=== PATIENT | female | born 1940 | race Caucasian/White ===

== ENCOUNTER 2017-06-26 10:51 | Inpatient (IN) | payer MEDICARE, MEDICAID ==
[2017-06-26] VITALS (16 sets, daily range): BP systolic 100–217; BP diastolic 39–122
[~2017-06-26] VITALS: Ht 165.1 cm; Wt 76.7 kg
--- NOTE | 2017-06-26 10:51 | NUR ---
CODE STROKE CALLED.
[2017-06-26] MEDS ORDERED: IV NS 0.9% 1,000 ML BAG IV ONE ×2 (11:00→12:00)
--- NOTE | 2017-06-26 11:00 | NUR ---
[id number] FROM HOME FOR AMS,FOUND PASSED OUT BY DAUGHTER IN THE HALLWAY. 2MG NARCAN GIVEN BY EMS W/O IMPROVEMENT. [id number]-1130PM LAST NIGHT BS-220. SEEN BY MD FOR EVAL. NOTED ALTERED, RESPONSIVE TO PAIN. NOTED WITH NASAL TRUMPET- PLACED ON NON-REBREATHER. IV ACCESS STARTED. SAFETY AND COMFORT MEASURES PROVIDED. WILL MONITOR.
[2017-06-26 11:03] LABS: BASOPHILS % (AUTO) 0.3 % (0.0-2.0); EOSINOPHILS % (AUTO) 0.1 % (0.0-6.0); HEMATOCRIT 37 % (33-45); HEMOGLOBIN 12.4 g/dL (11.5-14.8); LYMPHOCYTES # (AUTO) 1.2 /CMM (0.8-4.8); LYMPHOCYTES % (AUTO) 12.1 % (20.0-44.0); MEAN CORPUSCULAR HGB CONC 34 g/dl (31.0-36.0); MEAN CORPUSCULAR VOLUME 84 fL (82-100); MONOCYTES # (AUTO) 0.5 /CMM (0.1-1.30); MONOCYTES % (AUTO) 5.2 % (2.0-12.0); NEUTROPHILS # (AUTO) 8.5 /CMM (1.8-8.9); NEUTROPHILS % (AUTO) 82.3 % (43.0-81.0); PLATELET COUNT (AUTO) 280 /CMM (150-450); RED BLOOD CELL COUNT(AUTO) 4.36 MIL/uL (4.0-5.2); WHITE BLOOD COUNT (AUTO) 10.2 K/uL (4.3-11.0)
--- NOTE | 2017-06-26 11:05 | NUR ---
PT CAME BACK FROM CT.
[2017-06-26] MEDS ORDERED: IOHEXOL-350 100 ML VIAL IV ONE (11:07)
[2017-06-26] MEDS ORDERED: CT SWABBABLE VALVE TRANS SET 1 EA INFUS.SET MC ONE (11:08)
[2017-06-26] MEDS ORDERED: IV NS 0.9% 250 ML IV ONE (11:08)
[2017-06-26 11:09] LABS: CALCIUM, SERUM 9.1 mg/dL (8.5-10.1); CARBON DIOXIDE 25 mmol/L (21-32); CHLORIDE 99 mmol/L (98-107); GLUCOSE 215 mg/dL (74-106); POTASSIUM 3.9 mmol/L (3.5-5.1); SODIUM SERUM 136 mmol/L (136-145); UREA NITROGEN, BLOOD 15 mg/dL (7-18)
[2017-06-26 11:12] LABS: INR 0.94 (0.85-1.15)
[2017-06-26 11:17] LABS: CHOLESTEROL 147 mg/dL (<200); HDL CHOLESTEROL 60 mg/dL (40-60); LDL 69 mg/dL (0-99); TRIGLYCERIDES 108 mg/dL (30-150); TROPONIN I < 0.017 ng/mL (0.00-0.056)
[2017-06-26 11:25] LABS: ALANINE AMINOTRANSFERASE 20 U/L (12-78); ALBUMIN 4.2 g/dL (3.4-5.0); ALKALINE PHOSPHATASE 66 U/L (46-116); ASPARTATE AMINOTRANSFERASE 19 U/L (15-37); BILIRUBIN,DIRECT 0.1 mg/dL (0.0-0.2); BILIRUBIN,TOTAL 0.4 mg/dL (0.2-1.0); TOTAL PROTEIN, SERUM 7.8 g/dL (6.4-8.2)
[2017-06-26 12:23] LABS: APPEARANCE,URINE Clear (CLEAR); BILIRUBIN,URINE Negative (NEGATIVE); BLOOD, URINE Negative Ery/uL (NEGATIVE); COLOR,URINE Yellow (YELLOW); KETONES,URINE Negative (NEGATIVE); LEUKOCYTE ESTERASE ,URINE Negative (NEGATIVE); NITRITE, URINE Negative (NEGATIVE); PROTEIN,URINE Negative (NEGATIVE); UGLUCOSE 100 MG/DL mg/dL (NEGATIVE); UROBILINOGEN,URINE 0.2 EU/dL (0.2)
[2017-06-26 12:41] LABS: ABG BASE EXCESS -6.4 mmol/L; ABG OXYGEN SATURATION 97.3 % (92.0-98.5); ABG PCO2 48.6 mmHg (35.0-45.0); ABG PH 7.249 (7.350-7.450); ABG PO2 128.8 mmHg (75.0-100.0); AaDO2 129.5 mmHg; COHb 0.2 % (0.5-1.5); MetHb 0.2 % (0.0-1.5); O2Hb 96.9 % (94.0-97.0); SITE, ABG Left Radial; VENT MODE, BG SIMPLE MASK
[2017-06-26 12:49] LABS: CREATINE KINASE, TOTAL 117 U/L (26-192)
[2017-06-26 12:51] LABS: SALICYLATE 0.8 mg/dL (2.8-20.0)
[2017-06-26 12:51] LABS: ACETAMINOPHEN 3 ug/ml (10-30)
[2017-06-26] MEDS ORDERED: ONDANSETRON HCL/PF 4 MG/2 ML VIAL ONE (12:59)
[2017-06-26] MEDS ORDERED: VANCOMYCIN 1 GM in IV D5W 250 ML IV ONE (13:30)
[2017-06-26] MEDS ORDERED: ONDANSETRON HCL/PF - ER 4 MG/2 ML VIAL IV ONE (13:30)
[2017-06-26] MEDS ORDERED: hydrALAZINE HCL IV 20 MG VIAL IV PRN (13:30)
[2017-06-26] MEDS ORDERED: PIPERACILLIN /TAZOBACTAM 3.375 G in IV D5W 50 ML IV ONE (13:30)
--- NOTE | 2017-06-26 13:35 | NUR ---
ICU 264
--- NOTE | 2017-06-26 13:45 | NUR ---
SUCCESSFUL RSI DONE BY DR. BELLO. RTS RPESENT AT BS.
--- NOTE | 2017-06-26 13:54 | NUR ---
PT INTUBATED BY ER DR. BELLO. INTUBATED WITH A 7.5 ETT @23CM AT THE LIP. POSITIVE COLOR CHANGE ON CAP. BILAT. B/S AUSCULTATED BY ER . VENT SETTINGS PER DR. GONZALES REQUEST. VENT PLUGGED INTO RED OUTLET. INDUSTRIAL ORDER CLERK DONE. VENT ALARMS CHECKED AND AUDIBLE PER POLICY. AMBU BAG AT HOB. Addendum: 06/26/17 at 1402 by MIKAEL CRAIN RT Amended: Links added.
[2017-06-26] MEDS ORDERED: IV D5/0.45 NACL 1,000 ML IV ONE (14:00)
--- NOTE | 2017-06-26 14:01 | NUR ---
REPORT GIVEN TO JOSE LARSON FOR ICU 264.
[2017-06-26] MEDS ORDERED: ATEN50TA PO (14:11)
[2017-06-26] MEDS ORDERED: FEE PK DOSING 1 MIN EA MC ONE (14:11)
[2017-06-26] MEDS ORDERED: SOLI5TAB2 PO (14:11)
[2017-06-26] MEDS ORDERED: TRAZ-214 PO (14:11)
[2017-06-26] MEDS ORDERED: ESOM40CA PO (14:11)
[2017-06-26] MEDS ORDERED: ROSU20TA PO (14:11)
[2017-06-26] MEDS ORDERED: SERT25TA PO (14:11)
[2017-06-26] MEDS ORDERED: PROPOFOL 100 ML IV PRN (14:30)
--- NOTE | 2017-06-26 15:00 | NUR ---
RN INITIAL NOTES RECEIVED PT FROM ER INTUBATED, ETT IN PLACE. ON VENT. NO RESPIRATORY DISTRESS NOTED. NO SOB NOTED. PT SEDATED, ON DIPRIVAN AT 15MCG/KG/MIN STARTED IN ER. NGT IN PLACE, PLACEMENT VERIFIED. IV LINES IN PLACE. FLUSHED WITH NS. FC IN PLACE. NO HEMATURIA NOTED. BODY ASSESSMENT DONE. PIC TAKEN AND PLACED IN THE CHART. DR. LOZANO AWARE OF ADMISSION. AWAITING FOR ORDERS. WILL CLOSELY MONITOR.
[2017-06-26] MEDS ORDERED: ETOMIDATE 2 MG/ML VIAL IV ONE (15:16)
[2017-06-26] MEDS ORDERED: SUCCINYLCHOLINE CHLORIDE 20 MG/ML VIAL IV ONE (15:16)
[2017-06-26] MEDS ORDERED: DIATR MEGLU/DIATRIZOATE SODIUM 120 ML BOTTLE (GASTROGRAPHIN) ONE (15:26)
[2017-06-26 15:34] LABS: ABG BASE EXCESS -3.3 mmol/L; ABG OXYGEN SATURATION 99.2 % (92.0-98.5); ABG PCO2 44.5 mmHg (35.0-45.0); ABG PH 7.325 (7.350-7.450); ABG PO2 521.1 mmHg (75.0-100.0); AaDO2 147.4 mmHg; MetHb 0.6 % (0.0-1.5); O2Hb 98.6 % (94.0-97.0); SITE, ABG Left Radial; VT, ABG 450 mL
[2017-06-26] MEDS: ASPIRIN 300 MG/SUPP.RECT RC SCH (15:41)
[2017-06-26] MEDS: ENOXAPARIN SODIUM 40 MG/0.4 ML DISP.SYRIN SQ SCH (15:47)
[2017-06-26 16:47] LABS: BASOPHILS % (AUTO) 0.2 % (0.0-2.0); HEMATOCRIT 38 % (33-45); HEMOGLOBIN 12.8 g/dL (11.5-14.8); LYMPHOCYTES # (AUTO) 0.9 /CMM (0.8-4.8); LYMPHOCYTES % (AUTO) 7.1 % (20.0-44.0); MEAN CORPUSCULAR HGB CONC 33 g/dl (31.0-36.0); MEAN CORPUSCULAR VOLUME 86 fL (82-100); MONOCYTES # (AUTO) 0.6 /CMM (0.1-1.30); NEUTROPHILS # (AUTO) 10.7 /CMM (1.8-8.9); NEUTROPHILS % (AUTO) 87.7 % (43.0-81.0); PLATELET COUNT (AUTO) 257 /CMM (150-450); RDW COEFFICIENT OF VARIATION 12.4 (11.5-15.0); RED BLOOD CELL COUNT(AUTO) 4.48 MIL/uL (4.0-5.2); WHITE BLOOD COUNT (AUTO) 12.2 K/uL (4.3-11.0)
[2017-06-26 16:56] LABS: CALCIUM, SERUM 8.5 mg/dL (8.5-10.1); CARBON DIOXIDE 22 mmol/L (21-32); CHLORIDE 102 mmol/L (98-107); CREATININE 0.9 mg/dL (0.6-1.3); GLUCOSE 191 mg/dL (74-106); POTASSIUM 3.7 mmol/L (3.5-5.1); SODIUM SERUM 135 mmol/L (136-145); UREA NITROGEN, BLOOD 2 mg/dL (7-18)
[2017-06-26 17:09] LABS: ALANINE AMINOTRANSFERASE 21 U/L (12-78); ALBUMIN 3.8 g/dL (3.4-5.0); ALKALINE PHOSPHATASE 63 U/L (46-116); ASPARTATE AMINOTRANSFERASE 20 U/L (15-37); B-TYPE NATRIURETIC PEPTIDE 911 PG/ML (0-125); BILIRUBIN,TOTAL 0.6 mg/dL (0.2-1.0); TOTAL PROTEIN, SERUM 7.3 g/dL (6.4-8.2)
[2017-06-26 17:13] LABS: INR 0.99 (0.87-1.13)
[2017-06-26] MEDS ORDERED: BLOOD SUGAR DIAGNOSTIC 1 EACH STRIP IN SCH (17:30)
[2017-06-26] MEDS: BLOOD SUGAR DIAGNOSTIC 1 EACH STRIP IN SCH (18:02)
[2017-06-26 18:03] LABS: THYROID STIMULATING HORMONE 0.713 uIU/mL (0.358-3.74)
--- NOTE | 2017-06-26 18:07 | NUR ---
JEWISH HISTORY PROFESSOR NOTES NOTIFIED DR LOZANO REGARDING BS OF 157 , PER NEELECK COMMENT TO CALL MD IF BS MORE THAT 150MG/DL MD AWARE NO NEW ORDERS RECEIVED
[2017-06-26] MEDS: PROPOFOL 100 ML IV PRN ×2 (18:31→23:26)
--- NOTE | 2017-06-26 19:00 | NUR ---
RN CLOSING NOTES PT REMAINS INTUBATED, ON VENT. NO RESPIRATORY DISTRESS NOTED. NO SOB NOTED. NO SIGNS OF PAIN NOTED. PT SEDATED, ON DIPRIVAN. IV LINES IN PLACE. FC IN PLACE. PT KEPT CLEAN AND DRY. REPOSITIONED Q2. BLE ELEVATED. WILL ENDORSE FOR CONTINUITY OF CARE.
[2017-06-26] MEDS: PIPERACILLIN /TAZOBACTAM 3.375 G in IV D5W 50 ML IV SCH (19:37)
--- NOTE | 2017-06-26 20:00 | NUR ---
ORGANISATION AND METHODS ANALYST NOTE RECEIVED PT IN BED SEDETED ON DIPRIVAN AT 50 MCG/KG/MIN. ETT IN PLACE AT .08/22 ON VENT AC 16 TV 450 FIO2 50% PEEP 5. NO DISTRESS OR DISCOMFORT NOTED. NO S/S OF PAIN NOTED. LT NARE NG TUBE INTACT AND PATENT, PT IS NPO. IVF D5 12 NS INFUSING AT 75 ML/HR. NO S/S OF INFILTRATION NOTED. F/C INTACT AND PATENT DRAINING YELLOWISH COLOR URINE. REPOSITION HER FOR COMFORT AND SKIN MANAGEMENT. VSS. SIDE RAILS UP X 2 AND CALL LIGHT WITHIN REACH. CONTINUE TO MONITOR HER CLOSELY. FAMILY AT BED SIDE.
[2017-06-26] MEDS: ATORVASTATIN 40 MG TABLET PO SCH (21:29)
[2017-06-26] MEDS ORDERED: Medication Not On Formulary EA (Rosuvastatin Calcium (Crestor) 20 MG) PO SCH (22:00)
--- NOTE | 2017-06-26 23:30 | NUR ---
FREIGHT ROUTER NOTE ALLAN RAMÍREZ DNP INFORMED PT BECOME RESTLESS, ALLAN GAVE NEW ORDER, ORDER NOTED AND CARRIED OUT.
--- NOTE | 2017-06-26 23:50 | NUR ---
ANATOMICAL EMBALMER NOTE ATIVAN 1 MG IVP GIVEN FOR RESTLESSNESS. REPOSITION THE PT. CONTINUE TO MONITOR, DIPRIVAN AT 60 MCG/KG/MIN AT THIS TIME.
[2017-06-26] MEDS: LORAZEPAM INJ 2 MG/ML VIAL IV PRN (23:55)
[2017-06-27] VITALS (31 sets, daily range): BP systolic 88–167; BP diastolic 28–92
[2017-06-27] MEDS: BLOOD SUGAR DIAGNOSTIC 1 EACH STRIP IN SCH ×5 (00:15→23:12)
[2017-06-27] MEDS: PIPERACILLIN /TAZOBACTAM 3.375 G in IV D5W 50 ML IV SCH ×4 (01:24→20:22)
[2017-06-27] MEDS: PROPOFOL 100 ML IV PRN ×2 (02:48→06:05)
--- NOTE | 2017-06-27 05:11 | NUR ---
PT RECEIVED INTUBATED ON VENT. NO RESP DISTRESS. PT TOLERATING VENT SETTINGS. SX'D FOR MOD AMT OF THICK YELLOW SECRETIONS. VENT ALARMS SET AND AUDIBLE. AMBU BAG AT BEDSIDE. WILL CONTINUE TO MONITOR. Addendum: 06/27/17 at 0511 by DANNY WHITTINGTON RT Amended: Links added.
[2017-06-27 05:13] LABS: CALCIUM, SERUM 8.2 mg/dL (8.5-10.1); CARBON DIOXIDE 23 mmol/L (21-32); CHLORIDE 104 mmol/L (98-107); CREATININE 1.1 mg/dL (0.6-1.3); GLUCOSE 160 mg/dL (74-106); POTASSIUM 3.3 mmol/L (3.5-5.1); SODIUM SERUM 138 mmol/L (136-145); UREA NITROGEN, BLOOD 10 mg/dL (7-18)
--- NOTE | 2017-06-27 06:50 | NUR ---
ENGINEER THIRD ASSISTANT NOTE PT IN BED SEDATED. NO DISTRESS OR DISCOMFORT NOTED. NO S/S OF PAIN NOTED. TOLERATING VENT SETTINGS. KEPT HOB ELEVATED. REPOSITION HER Q2H, KEPT HER DRY AND CLEAN. F/C INTACT AND PATENT DRAINING YELLOWISH COLOR URINE. DIPRIVAN INFUSING AT 60 MCG/KG/MIN. SOFT WRIST RESTRAINTS ON BILATERAL WRIST. SIDE RAILS UP X 3 AND CALL LIGHT WITHIN REACH. WILL ENDORSE TO DAY SHIFT NURSE FOR CONTINUE TO CARE.
--- NOTE | 2017-06-27 07:10 | NUR ---
RN INITIAL NOTES RECEIVED PT INTUBATED, ON VENT. NO RESPIRATORY DISTRESS NOTED. NO SOB NOTED. NO SIGNS OF PAIN NOTED. HOB ELEVATED. NGT IN PLACE, CLAMPED. IV LINES IN PLACE. PT SEDATED. ON DIPRIVAN AT 60MCG/KG/MIN. WILL TITRATE ACCORDINGLY. FC IN PLACE. NO HEMATURIA NOTED. BLE ELEVATED. WILL CONTINUE TO MONITOR.
[2017-06-27] MEDS: ATENOLOL 50 MG TABLET PO SCH (08:23)
[2017-06-27] MEDS: ENOXAPARIN SODIUM 40 MG/0.4 ML DISP.SYRIN SQ SCH (08:30)
[2017-06-27] MEDS ORDERED: ASPIRIN 300 MG/SUPP.RECT RC SCH (09:00)
[2017-06-27] MEDS ORDERED: ASPIRIN EC 325 MG TABLET.DR PO SCH (09:00)
--- NOTE | 2017-06-27 09:00 | NUR ---
RN NOTES PT'S DIPRIVAN OFF FOR SEDATION VACATION. PT OPEN EYES, PT CONFUSED. UNABLE TO FOLLOW SIMPLE COMMANDS. WILL CLOSELY MONITOR.
[2017-06-27 09:05] LABS: ABG BASE EXCESS -0.8 mmol/L; ABG OXYGEN SATURATION 98.5 % (92.0-98.5); ABG PCO2 32.8 mmHg (35.0-45.0); ABG PH 7.455 (7.350-7.450); AaDO2 101.6 mmHg; COHb 0.3 % (0.5-1.5); O2Hb 97.2 % (94.0-97.0); PEEP,BG 5 cm H2O; SITE, ABG Left Radial; VT, ABG 450 mL
--- NOTE | 2017-06-27 09:30 | NUR ---
RN NOTES SEEN AND EXAMINED BY DR. KAMARA. AWARE OF PT'S CURRENT STATUS, CURRENT MEDS AND IMAGING STUDIES. PT OFF SEDATION. OPENS EYES, WITH CONFUSION. PER MD, SHE WILL ORDER EEG. WILL CLOSELY MONITOR.
--- NOTE | 2017-06-27 09:45 | NUR ---
RN NOTES SEEN AND EXAMINED BY DR. DRAKE. AWARE OF ABG RESULT. DIPRIVAN OFF FOR SEDATION VACATION. PT OPENS EYES, PT CONFUSED. UNABLE TO FOLLOW SIMPLE COMMANDS. NO RESPIRATORY DISTRESS NOTED. WILL CLOSELY MONITOR.
[2017-06-27] MEDS ORDERED: POTASSIUM CHLORIDE 20 MEQ POWDER PACKET NG ONE (10:00)
[2017-06-27] MEDS: ASPIRIN 300 MG/SUPP.RECT RC SCH (10:05)
--- NOTE | 2017-06-27 10:15 | NUR ---
RN NOTES PT SELF EXTUBATED. PLACED ON 02 AT 3LPM VIA NC. NO RESPIRATORY DISTRESS NOTED. NO SOB NOTED. PT A/OX1-2 WITH PERIODS OF CONFUSION. PT YELLING, SPITTING ON STAFF. DR. DRAKE IN THE UNIT NOTIFIED. WILL CLOSELY MONITOR.
[2017-06-27] MEDS: LORAZEPAM INJ 2 MG/ML VIAL IV PRN ×2 (10:19→23:12)
--- NOTE | 2017-06-27 10:30 | NUR ---
RN NOTES SEEN AND EXAMINED BY DR. LOZANO.A CARTER OF CURRENT LAB VALUES: SODIUM 138, POTASSIUM 3.3, REPLACED WITH KCL 20MEQ. BUN 10, CREA 1.1 AWARE THAT PT SELF EXTUBATED. ON 02 AT 3LPM VIA NC. NO RESPIRATORY DISTRESS NOTED. NO SOB NOTED. DENIES ANY PAIN. PT A/0X1 WITH PERIODS OF CONFUSION. SOSSI (DTR) NOTIFIED. WILL CLOSELY MONITOR.
[2017-06-27] MEDS: VANCOMYCIN 1.25 GM in IV D5W 500 ML IV SCH (12:24)
[2017-06-27] MEDS ORDERED: MORPHINE SULFATE INJ 4 MG/ML DISP.SYRIN IV PRN (13:00)
--- NOTE | 2017-06-27 18:38 | NUR ---
RN CLOSING NOTES PT A/OX 1-2. 0N 02 AT 3LPM VIA NC. NO RESPIRATORY DISTRESS NOTED. NO SOB NOTED. DENIES ANY PAIN. IV LINES IN PLACE. FC IN PLACE. KEPT CLEAN AND DRY. ASSISTED ON REPOSITIONING. KEPT COMFORTABLR. WILL ENDORSE FOR CONTINUITY OF CARE.
--- NOTE | 2017-06-27 19:30 | NUR ---
NECK FITTER: RECEIVED PT S/P SELF EXTUBATION, ON 3L 02 VIA NC WT NO ACUTE DISTRESS. ALERT AND ORIENTED X 2 WT RESTLESSNESS AND TRYING TO GET OUT OF BED. SR ON DIRECTOR OF CONTENT MARKETING. AFEBRILE. NO S/S OF INFILTRATION ON IV SITE. F/C PATENT AND INTACT DRAINING CLEAR YELLOW URINE TO GRAVITY. SAFETY PRECAUTION NOTED AT ALL TIMES. HOB AT 35 DEGREES. WILL CONTINUE TO MONITOR.
[2017-06-27] MEDS: ATORVASTATIN 40 MG TABLET PO SCH (21:13)
--- NOTE | 2017-06-27 23:15 | NUR ---
ACID MIXER: PT NOTED WT ANXIETY M/B RESTLESSNESS. GIVEN ATIVAN ORDERED. SAFETY PRECAUTION NOTED AT ALL TIMES. NOW ON 2L 02 VIA NC WT 02 SAT 94% AND ABOVE. WILL CONTINUE TO MONITOR ATIVAN EFFECTIVITY.
--- NOTE | 2017-06-27 23:45 | NUR ---
INTERNATIONAL NURSE: REASSESSED AFTER GIVEN ATIVAN WT GOOD EFFECT. PT IS CALM AND COOPERATIVE AT THIS TIME. SAFETY PRECAUTION NOTED AT ALL TIMES.
[2017-06-28] VITALS (15 sets, daily range): BP systolic 109–153; BP diastolic 42–81
[2017-06-28] MEDS: PIPERACILLIN /TAZOBACTAM 3.375 G in IV D5W 50 ML IV SCH ×4 (01:24→20:16)
--- NOTE | 2017-06-28 05:30 | NUR ---
DEPOSIT REFUND CLERK: PT IS FAST ASLEEP BUT O2 SAT WENT DOWN IN THE 80s. PLACED ON 6L 02 VIA NC WT BUBBLE HUMIDIFIER AND 02 WENT 96% AND ABOVE. NO ACUTE DISTRESS, NO EVIDENCE OF DISCOMFORT. WILL CONTINUE TO MONITOR.
[2017-06-28] MEDS: VANCOMYCIN 1.25 GM in IV D5W 500 ML IV SCH (05:32)
[2017-06-28] MEDS: BLOOD SUGAR DIAGNOSTIC 1 EACH STRIP IN SCH ×3 (05:32→16:58)
[2017-06-28 05:36] LABS: CALCIUM, SERUM 8.4 mg/dL (8.5-10.1); CARBON DIOXIDE 28 mmol/L (21-32); CHLORIDE 111 mmol/L (98-107); CREATININE 1.1 mg/dL (0.6-1.3); GLUCOSE 128 mg/dL (74-106); POTASSIUM 3.1 mmol/L (3.5-5.1); SODIUM SERUM 146 mmol/L (136-145); UREA NITROGEN, BLOOD 10 mg/dL (7-18)
[2017-06-28] MEDS: ASPIRIN 300 MG/SUPP.RECT RC SCH (08:31)
[2017-06-28] MEDS: ENOXAPARIN SODIUM 40 MG/0.4 ML DISP.SYRIN SQ SCH (08:33)
[2017-06-28] MEDS: ATENOLOL 50 MG TABLET PO SCH (08:35)
[2017-06-28] MEDS ORDERED: Z GUARD REMEDY 2 OZ OINT TP PRN (10:00)
[2017-06-28] MEDS: POTASSIUM CL. PREMIX PERIPHER. 50 ML IV SCH ×4 (10:09→13:58)
--- NOTE | 2017-06-28 12:15 | NUR ---
RN NOTE: PATIENT TRANSFER TO [facility] PER DR. DRAKE'S ORDERS WITH CHARGE NURSE WITH ACLS PROTOCOL. REPORT GIVEN TO RN AT BEDSIDE. PATIENT ALERT AWAKE ORIENTED X2-3. DENIES PAIN & DISCOMFORT. TRANSFER WITH ALL BELONGINGS.
--- NOTE | 2017-06-28 12:20 | NUR ---
RN NOTE RECIEVED PATIENT ALERT AND OREINTED. SHE IS ABLE TO MAKE THINGS KNONW, SPEAK A LITTLE KHMER, BUT PREFERS HER [place] LANGUAGE. BREATHING EVEN AND UNLABORED, WITH NO DISTRESS NOTED. CURRENTLY ON 2L VIA NC. ON ELEVATOR ERECTOR WITH SINUS RHYTHM HR OF 73. F/C INTACT AND PATENT WITH ADEQUATE FLOW OF URINE. ACCU CHECK DONE RESULT OF 81. RIGHT FA INTACT AND PATENT AND LEFT AC INTACT AND PATENT WITH NO S/SX OF INFILTRATION NOTED. WILL CONTINUE TO MONITOR CLOSELY.
--- NOTE | 2017-06-28 13:45 | NUR ---
RN NOTE CALLED MD DR LOZANO REGARDING TYLENOL ORDER. NEW ORDERS OBTAINED TYLENOL 650 Q6H PRN. PATIENT AND FAMILY MADE AWARE. CARRIED OUT AND NOTED.
[2017-06-28] MEDS: ACETAMINOPHEN 325 MG TABLET PO PRN ×2 (13:52→20:01)
[2017-06-28] MEDS: LACTOBACILLUS RHAMNOSUS GG 1 EACH CAP.SPRINK PO SCH (16:57)
--- NOTE | 2017-06-28 18:46 | NUR ---
RN NOTE PATIENT REMAINED STABLE. NO ACUTE CHANGES NOTED DURING SHIFT. BREATHING EVEN UNLABORED WITH NO SOB OR DISTRESS NOTED. ON OBSERVER ELECTRICAL PROSPECTING NORMAL SINUS RHYTHM HR OF 81. IV SITE INTACT AND PATENT WITH NO S/SX OF INFILTRATION OR REDNESS. PATIENT AND DAUGHTER MADE AWARE OF MRI ORDER OF THE BRAIN WITH AND WITHOUT CONTRAST AND AGREED. BED LOCKED, LOW POSITION, WILL ENDORSE TO NEXT SHIFT TO CONTINUE CONTINUITY OF CARE
[2017-06-28] MEDS: ATORVASTATIN 40 MG TABLET PO SCH (22:12)
[2017-06-29] VITALS: BP 119/42
[2017-06-29] MEDS: BLOOD SUGAR DIAGNOSTIC 1 EACH STRIP IN SCH ×4 (00:13→17:01)
[2017-06-29] MEDS: VANCOMYCIN 1.25 GM in IV D5W 500 ML IV SCH ×2 (00:18→17:06)
--- NOTE | 2017-06-29 02:00 | NUR ---
TELE-TD/MANAGER INFRASTRUCTURE DURING HOURLY ROUNDS I FOUND PT TO BE STANDING NEXT TO THE BED. I APPROACHED THE PT TO MAKE SURE SHE WAS STABLE AND WOULDN'T FALL. PT BEGAN SCREAMING AT ME THAT SHE WANTS TO GO HOME. PT SEEMED TO EXPERIENCING A MOMENT OF EXTREME CONFUSION. PT COULDN'T REMEMBER WHO I WAS OR WHY SHE WAS AT THE HOSPITAL. CHARGE NURSE JANNIE WAS IN THE ROOM TO HELP CALM THE PT. PTS DAUGHTER WAS CALLED AND HER DAUGHTER TOLD US THAT THIS SOMETIMES HAPPENS AT HOME WELL. PT SPOKE WITH HER DAUGHTER AND THE PT CALMED DOWN. SHE WAS PLACED BACK IN BED AND A 1:1 SITTER WILL REMAIN AT BEDSIDE FOR PT SAFETY. ALLAN RAMÍREZ DNP WAS CALLED AND MADE AWARE OF THE SITUATION. ORDER FOR STAT ABG PLACED. AWAITING RESULTS. WILL CONTINUE TO MONITOR CLOSELY.
--- NOTE | 2017-06-29 02:47 | NUR ---
RN NOTES RECEIVED PATIENT LYING COMFORTABLY IN BED WITH SON AT BEDSIDE. NO DISTRESS NOTED. BREATHING EVEN AND UNLABORED. ALERT AND ORIENTED WITH AGITATION. SON REQUESTED TO GIVE MEDICATION TO CALM PATIENT. HE SAID IT IS SUNDOWNING. PATIENT IS STARTING TO GET AGITATED AND CONFUSED. VITAL SIGNS WNL. KEPT CLEAN AND DRY. SITTER AT BEDSIDE. WILL CONTINUE TO MONITOR.
[2017-06-29 02:50] LABS: ABG BASE EXCESS -1.3 mmol/L; ABG OXYGEN SATURATION 97.9 % (92.0-98.5); ABG PCO2 39.4 mmHg (35.0-45.0); ABG PH 7.392 (7.350-7.450); ABG PO2 140.2 mmHg (75.0-100.0); COHb 0.3 % (0.5-1.5); MetHb 0.5 % (0.0-1.5); O2Hb 97.1 % (94.0-97.0); SITE, ABG Right Brachial; VENT MODE, BG 2 L NC
[2017-06-29] MEDS: PIPERACILLIN /TAZOBACTAM 3.375 G in IV D5W 50 ML IV SCH ×4 (03:16→20:30)
[2017-06-29] MEDS: ACETAMINOPHEN 325 MG TABLET PO PRN ×3 (03:26→19:09)
[2017-06-29 04:00] VITALS: BP 108/54
--- NOTE | 2017-06-29 05:35 | NUR ---
TELE-TD/PESTICIDE CONTROL INSPECTOR PT REFUSING AM LAB DRAW AND POC GLUCOSE CHECK. WILL ENDORSE TO AM SHIFT TO TRY AGAIN LATER.
--- NOTE | 2017-06-29 06:26 | NUR ---
TELE-TD/INSTRUCTOR ROBOTICS PT HAD ANOTHER OUTBURST AND SEEMINGLY EXPERIENCED PARANOID VISUAL HALLUCINATIONS. PTS GAZE IS LOOKING PAST THE STAFF WHILE SHE SCREAMS AND SHOUTS IN TERROR. PT ALSO REMOVED HER IV DURING THIS EVENT. PT WAS PLACED ON THE PHONE WITH HER DAUGHTER TO TRY AND CALM HER BUT THIS WAS NOT EFFECTIVE. I THEN SPOKE WITH THE PTS DAUGHTER AND SHE EXPLAINED THAT THIS IS ALMOST A NIGHTLY EVENT. WHERE THE PT WAKES FROM HER SLEEP AND BECOMES VIOLENTLY PARANOID ABOUT A PERSON OR PERSONS COMING TO GET HER. THE PTS OUTBURST LASTED ABOUT 20 MINS BEFORE SHE SOMEWHAT SETTLED DOWN ENOUGH TO APPLY A DRESSING TO HER IV SITE AND CHANGE HER GOWN AND LINENS. PT WAS PLACED BACK INTO BED AND 1:1 SITTER WILL REMAIN AT BEDSIDE FOR PTS SAFETY. PTS DAUGHTER SAID SHE WILL COME TO THE HOSPITAL RIGHT AWAY TO SIT WITH HER MOTHER WELL. WILL CONTINUE TO MONITOR CLOSELY.
--- NOTE | 2017-06-29 06:52 | NUR ---
TELE-TD/TANKER TRUCK DRIVER PT DAUGHTER AT BEDSIDE FOR PT COMFORT. WILL CONTINUE TO MONITOR.
[2017-06-29 08:00] VITALS: BP 123/60
[2017-06-29] MEDS: ATENOLOL 50 MG TABLET PO SCH (08:26)
[2017-06-29] MEDS: LACTOBACILLUS RHAMNOSUS GG 1 EACH CAP.SPRINK PO SCH ×2 (08:26→17:01)
[2017-06-29] MEDS: ENOXAPARIN SODIUM 40 MG/0.4 ML DISP.SYRIN SQ SCH (08:29)
[2017-06-29 09:27] LABS: CALCIUM, SERUM 8.5 mg/dL (8.5-10.1); CARBON DIOXIDE 26 mmol/L (21-32); CHLORIDE 108 mmol/L (98-107); CREATININE 1.1 mg/dL (0.6-1.3); GLUCOSE 159 mg/dL (74-106); POTASSIUM 3.6 mmol/L (3.5-5.1); SODIUM SERUM 143 mmol/L (136-145); UREA NITROGEN, BLOOD 8 mg/dL (7-18)
[2017-06-29] MEDS: ASPIRIN 300 MG/SUPP.RECT RC SCH (10:01)
[2017-06-29 12:00] VITALS: BP 136/66
[2017-06-29 16:00] VITALS: BP 139/67
[2017-06-29] MEDS ORDERED: GADOVERSETAMIDE 2.5 MMOL/5 ML VIAL IJ ONE (16:19)
[2017-06-29] MEDS ORDERED: GADOVERSETAMIDE 5 MMOL/10 ML VIAL IJ ONE (16:19)
--- NOTE | 2017-06-29 19:15 | NUR ---
GRANITE POLISHER APPRENTICE NOTE PT STABLE THROUGHOUT SHIFT. NO EPISODES OF CONFUSION ON MY SHIFT. PT CALM AND COOPERATIVE. PT C/O PAIN IN LFA REMOVE IV AND INSERTED #22G LEFT WRIST SON @ BEDSIDE BEGAN TO C/O IN IV SITE. REMOVED ICE PACK GIVEN WELL TYLENOL. SON REQUESTING TO GIVE PT 1-2 HOUR BEFORE REINSERTING IV. REPORT GIVEN TO OZIEL LARSON REGARDING PT. ALL ORDERS CARRIED SITTER @ BEDSIDE.
[2017-06-29 20:00] VITALS: BP_SYST 139; BP_SYST 151; BP_DIAS 56; BP_DIAS 67
[2017-06-29] MEDS: LORAZEPAM INJ 2 MG/ML VIAL IV PRN (20:30)
[2017-06-29] MEDS: ATORVASTATIN 40 MG TABLET PO SCH (21:34)
[2017-06-30] VITALS: BP 131/52
[2017-06-30] MEDS: BLOOD SUGAR DIAGNOSTIC 1 EACH STRIP IN SCH ×5 (02:09→23:36)
[2017-06-30] MEDS: PIPERACILLIN /TAZOBACTAM 3.375 G in IV D5W 50 ML IV SCH ×2 (02:10→08:41)
--- NOTE | 2017-06-30 02:50 | NUR ---
RN NOTES PATIENT HAS EPISODES OF ANXIETY BY SHOUTING AND CRYING AND PULLING OUT TUBINGS. NOTED PATIENT WITH SEVERAL EPISODES OF BEING CALM AND ORIENTED AND SUDDENLY WILL BECOME AGITATED AND AFTER SEVERAL MINUTES WOULD CALM DOWN AGAIN. CONTINUOUS MONITORING BEING DONE.
[2017-06-30 04:00] VITALS: BP 139/63
--- NOTE | 2017-06-30 06:54 | NUR ---
RN CLOSING NOTES PATIENT LYING IN BED STILL CRYING SAYING SHE WANTS TO GO HOME. NO DISTRESS NOTED. NO COMPLAINT OF PAIN OR DISCOMFORT. VITAL SIGNS WNL. WILL ENDORSE TO AM SHIFT FOR CONTINUITY OF CARE.
--- NOTE | 2017-06-30 07:27 | NUR ---
RN NOTE RECEIVED PATIENT ALERT AND ORIENTED. SHE IS ABLE TO MAKE THINGS KNOWN, SPEAK A LITTLE FRENCH, BUT PREFERS HER [place] LANGUAGE. BREATHING EVEN AND UNLABORED, WITH NO DISTRESS NOTED. CURRENTLY CRYING STATING SHE WANTS TO GO HOME. ON LINEN SUPPLY LOAD BUILDER WITH SINUS RHYTHM HR OF 82. F/C INTACT AND PATENT WITH ADEQUATE FLOW OF URINE. LEFT HAND IV INTACT AND PATENT WITH NO S/SX OF INFILTRATION NOTED. WILL CONTINUE TO MONITOR CLOSELY
[2017-06-30 08:00] VITALS: BP 156/66
[2017-06-30] MEDS: LACTOBACILLUS RHAMNOSUS GG 1 EACH CAP.SPRINK PO SCH ×2 (08:36→16:31)
[2017-06-30] MEDS: ATENOLOL 50 MG TABLET PO SCH (08:37)
[2017-06-30] MEDS: ENOXAPARIN SODIUM 40 MG/0.4 ML DISP.SYRIN SQ SCH (08:40)
[2017-06-30] MEDS: ASPIRIN 300 MG/SUPP.RECT RC SCH (09:00)
[2017-06-30 10:40] LABS: CARBON DIOXIDE 25 mmol/L (21-32); CHLORIDE 110 mmol/L (98-107); GLUCOSE 119 mg/dL (74-106); POTASSIUM 3.3 mmol/L (3.5-5.1); SODIUM SERUM 147 mmol/L (136-145); UREA NITROGEN, BLOOD 9 mg/dL (7-18)
[2017-06-30] MEDS: VANCOMYCIN 1.25 GM in IV D5W 500 ML IV SCH (11:04)
[2017-06-30 12:00] VITALS: BP 136/58
[2017-06-30] MEDS ORDERED: LEVO500T75 PO (13:38)
[2017-06-30 16:00] VITALS: BP 123/50
--- NOTE | 2017-06-30 18:51 | NUR ---
RN NOTE PATIENT REMAINED STABLE THROUGHOUT SHIFT. NO ACUTE CHANGES NOTED DURING SHIFT. BREATHING EVEN UNLABORED WITH NO SOB OR DISTRESS NOTED. RECEIVED ORDER FOR PATIENT TO BE DISCHARGE TOMORROW, PATIENT AND FAMILY MADE AWARE. WILL ENDORSE TO NEXT SHIFT TO CONTINUE CONTINUITY OF CARE
[2017-06-30] MEDS: ACETAMINOPHEN 325 MG TABLET PO PRN (19:53)
[2017-06-30 20:05] VITALS: BP 147/54
[2017-06-30] MEDS: ATORVASTATIN 40 MG TABLET PO SCH (21:55)
--- NOTE | 2017-06-30 23:41 | NUR ---
rn note recieved patient awake alert, calm and cooperative with sitter at bedside. patient states "she sometimes gets antsy." Reassured that she have as needed medication to calm her down in case she gets anxious. Blood sugar @2345 was 100 md/dl.
[2017-06-30] MEDS: LORAZEPAM INJ 2 MG/ML VIAL IV PRN (23:59)
[2017-07-01 00:57] VITALS: BP 159/71
[2017-07-01 01:33] VITALS: BP 142/60
[2017-07-01 04:30] VITALS: BP 130/65
[2017-07-01] MEDS: BLOOD SUGAR DIAGNOSTIC 1 EACH STRIP IN SCH ×2 (06:10→12:00)
[2017-07-01 07:03] LABS: CALCIUM, SERUM 8.7 mg/dL (8.5-10.1); CARBON DIOXIDE 26 mmol/L (21-32); CHLORIDE 110 mmol/L (98-107); CREATININE 0.9 mg/dL (0.6-1.3); GLUCOSE 99 mg/dL (74-106); POTASSIUM 3.4 mmol/L (3.5-5.1); SODIUM SERUM 145 mmol/L (136-145); UREA NITROGEN, BLOOD 10 mg/dL (7-18)
--- NOTE | 2017-07-01 07:30 | NUR ---
REHABILITATION PROGRAM COORDINATOR NOTES PT IN BED, ASLEEP, EASY TO AROUSE, NOT IN PAIN OR DISTRESS, CALL LIGHT WITHIN REACH, SITTER AT BEDSIDE, ON LOW BED FOR SAFETY, KEPT WARM AND COMFORTABLE IN BED.
[2017-07-01 08:00] VITALS: BP 167/73
[2017-07-01] MEDS: LACTOBACILLUS RHAMNOSUS GG 1 EACH CAP.SPRINK PO SCH (08:52)
[2017-07-01] MEDS: ATENOLOL 50 MG TABLET PO SCH (08:53)
[2017-07-01] MEDS: ACETAMINOPHEN 325 MG TABLET PO PRN ×2 (08:59→13:22)
[2017-07-01] MEDS: ENOXAPARIN SODIUM 40 MG/0.4 ML DISP.SYRIN SQ SCH (09:00)
[2017-07-01] MEDS: ASPIRIN 300 MG/SUPP.RECT RC SCH (09:00)
[2017-07-01] MEDS ORDERED: LISI10TA5 PO (09:46)
[2017-07-01] MEDS ORDERED: LISINOPRIL (10MG) 10 MG TABLET PO SCH (10:00)
[2017-07-01] MEDS ORDERED: POTASSIUM CHLORIDE 20 MEQ TAB.PRT.SR PO SCH (10:30)
--- NOTE | 2017-07-01 11:48 | NUR ---
RN MS NOTES PT IN BED, AWAKE, ALERT AND ORIENTED, CALM AND COOPERATIVE AT THIS TIME, RESPIRATIONS NORMAL AND NOT LABORED, SEEN BY DR. LOZANO, DISCHARGE ORDER GIVEN, PT AND DAUGHTER SOSSI INFORMED, DISCHARGE AND MEDICATION INSTRUCTIONS PROVIDED TO PT AND DAUGHTER, VERBALIZED UNDERSTANDING, BELONGINGS ACCOUNTED FOR, REPORT GIVEN TO CLARA LARSON OF [facility], PT REFUSED SKIN ASSESSMENT AND PHOTOS, AWAITING BURNER HAND.
--- NOTE | 2017-07-01 12:00 | NUR ---
RN MS NOTES BS CHECKED NOT DONE, PT NOT NPO.
[2017-07-01 13:40] VITALS: BP 156/80
--- NOTE | 2017-07-01 13:40 | NUR ---
PRODUCTION PATTERN MAKER NOTES PT IN BED, AWAKE, ALERT AND ORIENTED, WITH COMPLAINT OF MILD GENERALIZED PAIN, REQUESTED FOR TYLENOL, GIVEN ORDERED, RESPIRATIONS NORMAL, TOLERATING ROOM AIR WELL, LATEST BP 156/80, HR 70, ADMITTING NURSE CLARA OF [facility] INFORMED OF CURRENT VITALS, PT BELONGINGS ACCOUNTED FOR, DAUGHTER LAURY INFORMED OF TRANSFER, LEFT VIA GUERNEY FOR TRANSFER TO SNF VIA AMBULANCE, PICKED UP BY 2 AMBULANCE PERSONNEL IN STABLE CONDITION.
[2017-11-21] MEDS ORDERED: DIVA125C2 PO (19:47)
== END 2017-07-01 13:37 | DRG 871 ==
LOC: ER 10:52 → ICU 13:50 → TELE1 06-28 12:01 → TELE-TD 06-28 12:03 → TELE1 06-29 11:53
PROVIDERS: ADMIT Internal Medicine; ATTEND Internal Medicine
PROC: 5A1935Z Respiratory Ventilation, Less than 24 Consecutive Hours (ICD-10-PCS; principal; 2017-06-26)
PROC: 0BH18EZ Insertion of Endotracheal Airway into Trachea, Via Natural or Artificial Opening Endoscopic (ICD-10-PCS; 2017-06-26)
DX: A41.9 Sepsis, unspecified organism (principal); J69.0 Pneumonitis due to inhalation of food and vomit; J96.01 Acute respiratory failure with hypoxia; E87.2 Acidosis; G93.40 Encephalopathy, unspecified; I10 Essential (primary) hypertension; E78.5 Hyperlipidemia, unspecified; E87.6 Hypokalemia; F41.9 Anxiety disorder, unspecified; F32.9 Major depressive disorder, single episode, unspecified; F29 Unspecified psychosis not due to a substance or known physiological condition
CPT/HCPCS: 36415; 36600; 70450-TC; 70496-TC; 70498-TC; 70553-TC; 71045-TC; 72125-TC; 73030-TC; 73620-TC; 80048-TC; 80053-TC; 80061-TC; 80076-TC; 80202-TC; 80305; 81000-TC; 82140-TC; 82550-TC; 82803-TC; 82962-TC; 83605-TC; 83880; 84443-TC; 84484-TC; 85025-TC; 85652-TC; 85730-TC; 86850-TC; 87040-TC; 87081-TC; 87086-TC; 92526; 92611-TC; 93307-TC; 93880-TC; 94002-TC; 94003-TC; 95819-TC; 97110-TC; 97112-TC; 97116-TC; 97530-TC; 99082-TC; A4606; A9579; G0480; J0330; J1650; J2060; J2270; J2405; J2543; J3370; J3480; J3490; J7030; J7040; J7050; J7060; Q9963; Q9967; Z7610

== ENCOUNTER 2017-11-21 14:53 | Inpatient (IN) | payer MEDICARE, MEDICAID ==
[~2017-11-21] VITALS: Ht 154.9 cm; Wt 71.7 kg
[2017-11-21] VITALS (19 sets, daily range): BP systolic 75–147; BP diastolic 39–83
[~2017-11-21 14:53] MED LIST: ATEN50TA PO; ESOM40CA PO; LEVO500T75 PO; LISI10TA5 PO; ROSU20TA PO; SERT25TA PO; SOLI5TAB2 PO; TRAZ-214 PO
--- NOTE | 2017-11-21 14:59 | NUR ---
pt bibra from home to er bed 08. per report, pt was noted to be "shaking" and went to sleep. family got concerned and called 911. upon ems arrival pt was noted to be apneic. pt was intubated and being bagged internet marketing assistant. placed on monitor. stable vitals. dr rivera at bedside.
--- NOTE | 2017-11-21 15:00 | NUR ---
pt taken to radiology for head ct scan via fernando.
--- NOTE | 2017-11-21 15:01 | NUR ---
CALLED NURSING FINANCIAL SERVICES PROFESSIONAL AND REQUESTED AN ICU BED FOR THIS PT.
--- NOTE | 2017-11-21 15:01 | NUR ---
CALLED NURSING SECOND LANGUAGE TUTOR FOR ICU BED FOR THIS PATIENT
--- NOTE | 2017-11-21 15:10 | NUR ---
iv line started blood drawn and sent to lab.
--- NOTE | 2017-11-21 15:16 | NUR ---
radiology at bedside for chest xray/
[2017-11-21 15:17] LABS: BASOPHILS % (AUTO) 0.5 % (0.0-2.0); EOSINOPHILS % (AUTO) 0.9 % (0.0-6.0); HEMATOCRIT 34 % (33-45); LYMPHOCYTES # (AUTO) 2.1 /CMM (0.8-4.8); LYMPHOCYTES % (AUTO) 38.2 % (20.0-44.0); MEAN CORPUSCULAR HEMOGLOBIN 28 PG (26.0-33.0); MEAN CORPUSCULAR HGB CONC 33 g/dl (31.0-36.0); MEAN CORPUSCULAR VOLUME 84 fL (82-100); MONOCYTES # (AUTO) 0.5 /CMM (0.1-1.30); MONOCYTES % (AUTO) 8.7 % (2.0-12.0); NEUTROPHILS # (AUTO) 2.9 /CMM (1.8-8.9); NEUTROPHILS % (AUTO) 51.7 % (43.0-81.0); PLATELET COUNT (AUTO) 262 /CMM (150-450); RDW COEFFICIENT OF VARIATION 13.6 (11.5-15.0); WHITE BLOOD COUNT (AUTO) 5.5 K/uL (4.3-11.0)
[2017-11-21 15:24] LABS: CALCIUM, SERUM 8.3 mg/dL (8.5-10.1); CARBON DIOXIDE 24 mmol/L (21-32); CHLORIDE 108 mmol/L (98-107); CREATININE 1.2 mg/dL (0.6-1.3); GLUCOSE 60 mg/dL (74-106); POTASSIUM 3.8 mmol/L (3.5-5.1); SODIUM SERUM 140 mmol/L (136-145); UREA NITROGEN, BLOOD 20 mg/dL (7-18)
[2017-11-21 15:25] LABS: ABG BASE EXCESS -3.8 mmol/L; ABG OXYGEN SATURATION 98.6 % (92.0-98.5); ABG PCO2 31.9 mmHg (35.0-45.0); ABG PH 7.415 (7.350-7.450); ABG PO2 252.4 mmHg (75.0-100.0); AaDO2 428.7 mmHg; COHb 0.3 % (0.5-1.5); MetHb 0.5 % (0.0-1.5); O2Hb 97.8 % (94.0-97.0); PEEP,BG 0 cm H2O; SITE, ABG Right Radial; VT, ABG 450 mL
--- NOTE | 2017-11-21 15:25 | NUR ---
pt still hypotensive. 2L ns bolus per md rivera verbal order.
[2017-11-21 15:30] LABS: ALBUMIN 3.4 g/dL (3.4-5.0); ALKALINE PHOSPHATASE 64 U/L (46-116); ASPARTATE AMINOTRANSFERASE 12 U/L (15-37); BILIRUBIN,TOTAL 0.2 mg/dL (0.2-1.0); TOTAL PROTEIN, SERUM 6.4 g/dL (6.4-8.2)
[2017-11-21] MEDS ORDERED: DEXTROSE 50%-WATER 50 ML DISP.SYRIN IVP ONE (15:30)
[2017-11-21 15:32] LABS: TROPONIN I < 0.017 ng/mL (0.00-0.056)
[2017-11-21 15:34] LABS: INR 0.98 (0.85-1.15)
[2017-11-21] MEDS ORDERED: DEXTROSE 50%-WATER 50 ML DISP.SYRIN ONE (15:34)
--- NOTE | 2017-11-21 15:36 | NUR ---
dr rivera back at bedside for central line insertion.
--- NOTE | 2017-11-21 15:40 | NUR ---
ADMIT TO ICU BED 256
--- NOTE | 2017-11-21 15:43 | NUR ---
vent settings, ac 16, tv 550, fi02 100%, 0 peep
[2017-11-21] MEDS ORDERED: CT SWABBABLE VALVE TRANS SET 1 EA INFUS.SET MC ONE (15:48)
[2017-11-21] MEDS ORDERED: IV NS 0.9% 250 ML IV ONE (15:48)
[2017-11-21] MEDS ORDERED: IOHEXOL-350 100 ML VIAL IV ONE (15:48)
[2017-11-21] MEDS ORDERED: NOREPINEPHRINE 8 MG in IV D5W 500 ML IV PRN ×2 (16:00→18:00)
[2017-11-21] MEDS ORDERED: IV NS 0.9% 1,000 ML BAG IV ONE (16:00)
--- NOTE | 2017-11-21 16:00 | NUR ---
RT PT BROUGHT IN ORALLY INTUBATED WITH ETT 7.0 DUE TO RESP ARREST. PLACED PT ON VENT PER MD. MD CONFIRMED BILATERAL CHEST RISE, C02 CAPNOGRAPHY AND CXR THAT THE TUBE IS IN PLACE. PUNCH OPERATOR DONE AND ETT IS SECURE @ 21CM LIP WITH ANCHOR FAST. VENT ALARMS CHECKED AND AUDIBLE. VENT PLUGGED IN RED OUTLET. AMBU BAG NOTED HOB. ABG DONE, RESULTS GIVEN TO MD. PT BROUGHT TO CT AND PLACED BACK ON VENT. PT TOLERATING SETTINGS WELL WILL CONTINUE TO MONITOR T/O SHIFT.
[2017-11-21 16:01] LABS: ALANINE AMINOTRANSFERASE 11 U/L (12-78)
--- NOTE | 2017-11-21 16:35 | NUR ---
CALLED [facility] ASKED FOR STAT READ OF ALL CTA TESTS.
--- NOTE | 2017-11-21 16:43 | NUR ---
CALLED [facility] TO [facility] FOR THIS PATIENT.
--- NOTE | 2017-11-21 16:45 | NUR ---
pt's b/p 140/78 levophed drip titrated down to 2mcg/min 8.1 ml/hr. will continue to monitor.
[2017-11-21 16:51] LABS: APPEARANCE,URINE CLEAR (CLEAR); BILIRUBIN,URINE NEGATIVE (NEGATIVE); BLOOD, URINE NEGATIVE Ery/uL (NEGATIVE); COLOR,URINE YELLOW (YELLOW); KETONES,URINE NEGATIVE (NEGATIVE); LEUKOCYTE ESTERASE ,URINE NEGATIVE (NEGATIVE); NITRITE, URINE NEGATIVE (NEGATIVE); PROTEIN,URINE NEGATIVE (NEGATIVE); UGLUCOSE NEGATIVE (NEGATIVE); UROBILINOGEN,URINE 0.2 EU/dL (0.2)
--- NOTE | 2017-11-21 17:10 | NUR ---
REPORT GIVEN TO KAVON LARSON. PT AWAITING TRANSFER TO ICU.
[2017-11-21 17:14] LABS: ABG OXYGEN SATURATION 98.9 % (92.0-98.5); ABG PCO2 36.8 mmHg (35.0-45.0); ABG PH 7.335 (7.350-7.450); ABG PO2 383.6 mmHg (75.0-100.0); AaDO2 292.6 mmHg; COHb 0.3 % (0.5-1.5); MetHb 0.6 % (0.0-1.5); PEEP,BG 0 cm H2O; SITE, ABG Right Radial; VT, ABG 450 mL
--- NOTE | 2017-11-21 17:20 | NUR ---
POST ABG DONE AND RESULTS GIVEN TO DR. BARRON. RR CHANGED TO 18 AND FIO2 TO 50% PER MD.
[2017-11-21] MEDS ORDERED: VANCOMYCIN 1 GM in IV D5W 250 ML IV ONE (17:30)
[2017-11-21] MEDS ORDERED: PIPERACILLIN /TAZOBACTAM 3.375 G in IV D5W 50 ML IV ONE (17:30)
--- NOTE | 2017-11-21 17:30 | NUR ---
RT TRANSFERRED PT TO ICU. VENT PLUGGED IN RED OUTLET. AMBU BAG NOTED HOB. PT TOLERATING CURRENT SETTINGS WELL.
[2017-11-21] MEDS ORDERED: PROPOFOL 100 ML IV PRN (18:00)
[2017-11-21] MEDS ORDERED: MAG HYDROX/AL HYDROX/SIMETH 30 ML UDC PO PRN (18:00)
[2017-11-21] MEDS ORDERED: ONDANSETRON HCL/PF 4 MG/2 ML VIAL IVP PRN (18:00)
[2017-11-21] MEDS ORDERED: ACETAMINOPHEN 325 MG TABLET PO PRN (18:00)
[2017-11-21] MEDS ORDERED: FEE PK DOSING 1 MIN EA MC ONE (18:18)
[2017-11-21] MEDS: ENOXAPARIN SODIUM 30 MG/0.3 ML DISP.SYRIN SQ SCH (18:30)
[2017-11-21] MEDS: IV NS 0.9% 1,000 ML IV PRN (18:32)
[2017-11-21] MEDS: ATENOLOL 25 MG TABLET PO SCH (19:30)
[2017-11-21] MEDS: OLANZAPINE 5 MG TABLET PO SCH (19:30)
[2017-11-21] MEDS ORDERED: ACETAMINOPHEN 650 MG/20.3 ML UDC NG PRN (19:30)
--- NOTE | 2017-11-21 19:40 | NUR ---
Received report from day shift Sonia French RN patient patient intubated to vent on AC 18.TV 450, FIO2 450,PEEP 5.SPO2 100%.Patient moving hands and feet but not following commands.Bilateral soft wrist restraints in place.No circulatory impairment noted.Restraint protocol implemented.Tele monitor shows SR with BBB.Levophed gtt infusing at 2 mcg and will titrate accordingly.NPO status with iv hydration infusing via R fem TLC site intact.FC with clear yellow urine.Turned and repositioned. No distress noted.
[2017-11-21] MEDS ORDERED: DOCU250C14 PO (19:47)
[2017-11-21] MEDS ORDERED: ACET-73 PO (19:47)
[2017-11-21] MEDS ORDERED: DIVA125C PO (19:47)
[2017-11-21] MEDS ORDERED: OLAN5TAB3 PO (19:47)
[2017-11-21] MEDS ORDERED: LISI-607 PO (19:48)
[2017-11-21] MEDS: OXYBUTYNIN CHLORIDE 5 MG TABLET PO SCH (20:00)
--- NOTE | 2017-11-21 20:48 | NUR ---
RECEIVED PT ORALLY INTUBATED WITH 7.0 ETT SECURED AT 22CM AT THE LIP. NO RESP DISTRESS NOTED. PT TOLERATING VENT SETTINGS. SX'D FOR SML AMT OF THICK YELLOW SECRETIONS. ETT IS SECURED, CUFF RAILROAD WATCHMAN. XRAY CHECKED AND ETT IS IN GOOD POSITION. VENT ALARMS SET AND AUDIBLE. AMBU BAG AT BEDSIDE. VENT PLUGGED INTO RED OUTLET. WILL CONTINUE TO MONITOR. Addendum: 11/21/17 at 2050 by FLY ORELLANA RT Amended: Links added.
[2017-11-21] MEDS: DIVALPROEX SODIUM 125 MG CAP.SPRINK PO SCH (21:00)
[2017-11-21] MEDS: PIPERACILLIN /TAZOBACTAM 3.375 G in IV D5W 50 ML IV SCH (23:29)
[2017-11-22] VITALS (57 sets, daily range): BP systolic 96–157; BP diastolic 11–112
--- NOTE | 2017-11-22 | NUR ---
Patient resting .VS remains stable.Turned and repositioned.
--- NOTE | 2017-11-22 04:00 | NUR ---
Patient resting.VS stable.Bathed and linens changed .Turned and repositioned.No distress noted.
[2017-11-22 04:43] LABS: HEMATOCRIT 31 % (33-45); HEMOGLOBIN 10.1 g/dL (11.5-14.8); LYMPHOCYTES # (AUTO) 0.7 /CMM (0.8-4.8); LYMPHOCYTES % (AUTO) 6.9 % (20.0-44.0); MEAN CORPUSCULAR HEMOGLOBIN 28 PG (26.0-33.0); MEAN CORPUSCULAR HGB CONC 33 g/dl (31.0-36.0); MEAN CORPUSCULAR VOLUME 86 fL (82-100); MONOCYTES # (AUTO) 0.5 /CMM (0.1-1.30); MONOCYTES % (AUTO) 4.5 % (2.0-12.0); NEUTROPHILS # (AUTO) 9.4 /CMM (1.8-8.9); NEUTROPHILS % (AUTO) 88.6 % (43.0-81.0); PLATELET COUNT (AUTO) 227 /CMM (150-450); RDW COEFFICIENT OF VARIATION 14.2 (11.5-15.0); RED BLOOD CELL COUNT(AUTO) 3.56 MIL/uL (4.0-5.2); WHITE BLOOD COUNT (AUTO) 10.7 K/uL (4.3-11.0)
[2017-11-22 04:57] LABS: CALCIUM, SERUM 7.9 mg/dL (8.5-10.1); CARBON DIOXIDE 22 mmol/L (21-32); CHLORIDE 108 mmol/L (98-107); CREATININE 1.1 mg/dL (0.6-1.3); GLUCOSE 85 mg/dL (74-106); MAGNESIUM 1.8 mg/dL (1.8-2.4); PHOSPHORUS 3.6 mg/dL (2.5-4.9); POTASSIUM 3.9 mmol/L (3.5-5.1); SODIUM SERUM 140 mmol/L (136-145); UREA NITROGEN, BLOOD 13 mg/dL (7-18)
[2017-11-22 05:00] LABS: CHOLESTEROL 168 mg/dL (<200); HDL CHOLESTEROL 45 mg/dL (40-60); LDL 102 mg/dL (0-99); TRIGLYCERIDES 134 mg/dL (30-150)
[2017-11-22] MEDS: PIPERACILLIN /TAZOBACTAM 3.375 G in IV D5W 50 ML IV SCH ×3 (06:00→17:19)
--- NOTE | 2017-11-22 07:15 | NUR ---
Patient resting.No significant change noted during the shift.VS stable.Adequate urine output. No distress noted.Turned and repositioned.Report given to day shift RN for archie.
--- NOTE | 2017-11-22 07:54 | NUR ---
INITIAL PUBLIC RELATIONS DIRECTOR NOTE RCVD PT AWAKE AND ALERT, ABLE TO FOLLOW SIMPLE COMMANDS, PT APPEARS CALM AT THIS TIME SHOWING NO S/O DISTRESS/PAIN. SR ON TELE. TOLERATING ORDERED VENT SETTINGS. WALSH DRAINING CLEAR, YELLOW URINE. IV SITES C/D/I/PATENT. NO S/O INFILTRATION/PHLEBITIS UPON FLUSHING. PT NPO AT THIS TIME WITHOUT NG-TUBE ACCESS FOR MEDS. WILL CONTINUE TO MONITOR PT FOR SAFETY AND COMFORT. CALL LIGHT WITHIN REACH. BED IN LOW AND LOCKED POSITION.
[2017-11-22] MEDS: PANTOPRAZOLE 40 MG VIAL IV SCH (08:44)
[2017-11-22] MEDS: IV NS 0.9% 1,000 ML IV PRN ×2 (08:45→20:59)
[2017-11-22] MEDS: LISINOPRIL (5MG) 5 MG TABLET PO SCH (09:00)
[2017-11-22] MEDS: ATENOLOL 25 MG TABLET PO SCH (09:00)
[2017-11-22] MEDS ORDERED: DOCUSATE SODIUM 250 MG CAPSULE PO SCH (09:00)
[2017-11-22] MEDS: PROPOFOL 100 ML IV PRN ×2 (09:20→20:35)
--- NOTE | 2017-11-22 10:02 | NUR ---
FAMILY PRACTITIONER NOTE PT BECAME RESTLESS, ATTEMPTING TO PULL ETT AND FIGHT RESTRAINTS, PT WAS RE-ORIENTED TO PLACE, SITUATION, TIME WITHOUT SUCCESS. DR. KAMARA IN UNIT RECOMMENDED TO START PT ON DIPRIVAN. PT APPEARS COMFORTABLE WITH DIPRIVAN. MENA MEJIA IN UNIT UPDATED ON PT'S CONDITION. INFORMED THAT PT HAS NO NG-TUBE UNABLE TO GIVE MORNING MEDS. WAITING FOR DR. DRAKE TO GET RECOMMENDATION FOR POSSIBLE EXTUBATION? WILL F/U.
[2017-11-22 13:26] LABS: ABG BASE EXCESS -7.3 mmol/L; ABG OXYGEN SATURATION 97.4 % (92.0-98.5); ABG PCO2 41.7 mmHg (35.0-45.0); ABG PH 7.277 (7.350-7.450); ABG PO2 150.5 mmHg (75.0-100.0); AaDO2 159.1 mmHg; COHb 0.3 % (0.5-1.5); MetHb 0.5 % (0.0-1.5); O2Hb 96.6 % (94.0-97.0); PEEP,BG 5 cm H2O; SITE, ABG Right Radial
--- NOTE | 2017-11-22 13:29 | NUR ---
PT PLACED BACK ON AC MODE POST ABG. NURSING STAFF AND MD AWARE OF CHANGES. Addendum: 11/22/17 at 1330 by CLAUDINE FARIAS RT Amended: Links added.
--- NOTE | 2017-11-22 13:40 | NUR ---
PUNCH FINISHER NOTE POST CPAP TRIAL ABG RESULTS COMMUNICATED TO DR. DRAKE WHO RECOMMENDED TO PLACE PT BACK ON PREVIOUS AC SETTINGS. PT REMAINS AWAKE AND ALERT, ABLE TO FOLLOW SIMPLE COMMANDS. SEDATION RESTARTED. PT'S FAMILY AT BEDSIDE UPDATED ON PLAN OF CARE.
[2017-11-22] MEDS: OLANZAPINE 5 MG TABLET PO SCH (14:03)
[2017-11-22] MEDS: DIVALPROEX SODIUM 125 MG CAP.SPRINK PO SCH ×2 (14:03→20:33)
[2017-11-22] MEDS: OXYBUTYNIN CHLORIDE 5 MG TABLET PO SCH ×2 (14:03→18:49)
[2017-11-22] MEDS: SERTRALINE HCL 25 MG TABLET PO SCH (14:03)
--- NOTE | 2017-11-22 14:06 | NUR ---
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 ISOLATION CART REQUESTED FROM [facility]. PT'S FAMILY INFORMED. AM MEDICATIONS GIVEN LATE. OG-TUBE INSERTED SINCE PT WON'T BE WEANING OFF VENT TODAY. BP MEDS HELD SINCE PT WAS ON PRESSORS LAST NIGHT WILL CONTINUE TO MONITOR. COLACE CAPSULE HELD AND CHANGED TO LIQUID FORM.
[2017-11-22] MEDS ORDERED: VANCOMYCIN 1 GM in IV D5W 250 ML IV SCH (17:00)
[2017-11-22] MEDS: VANCOMYCIN 1.25 GM in IV D5W 500 ML IV SCH (17:23)
--- NOTE | 2017-11-22 18:57 | NUR ---
SHIPPING AND RECEIVING SUPERVISOR NOTE PT REMAINS STABLE, SHOWING NO S/O DISTRESS/PAIN. BILATERAL WRIST RESTRAINTS IN PLACE. CIRCULATION CHECKS DONE. PT'S FAMILY AT BEDSIDE UPDATED ON PT'S CONDITION. SR ON TELE. WALSH TO GRAVITY, OG-TUBE INSERTED ORDERED. PLACEMENT VERIFIED BY AUSCULTATION/ASPIRATION OF GREEN GASTRIC CONTENTS. IV SITES C/D/I/PATENT. IVF INFUSING NO S/O INFILTRATION/PHLEBITIS. PT'S CARE WILL BE ENDORSED TO PATROL INSPECTOR RN. BED IN LOW AND LOCKED POSITION. CALL LIGHT WITHIN REACH.
--- NOTE | 2017-11-22 19:15 | NUR ---
STOREKEEPER STEWARD RCD PT W/DX RESP FAIL; TOXIC ENCEPHALOPATHY; PT IS SEDATED ON PROPOFOL AT 15 MCG/KG/MIN; WAKES UP TO PAINFUL STIMULI; BL SOFT WRIST RESTRAINTS FOR SAFETY; PT NOTED W/HX OF SELF EXTUBATION. NSR ON MONITOR. INTUBATED 7.0 @ 22 W/VENT SETTINGS AC 18 450 50% PT HAS THICK BLOOD TINGED SECRETIONS. OG TUBE CLAMPED. WALSH CATH WITH MIN YELLOW URINE OUTPUT. MEPILEX APPLIED TO SACRUM FOR SKIN PROTECTION. R FEM TLC PATENT AND FLUSHING WELL W/GOOD BLOOD RETURN. PERIPHERAL IV TO RIGHT AC AND LEFT WRIST REMOVED THEY ARE LEAKING. CONTINUE TO MONITOR.
--- NOTE | 2017-11-22 20:06 | NUR ---
RECEIVED PT ORALLY INTUBATED WITH 7.0 ETT SECURED AT 22CM AT THE LIP. NO RESP DISTRESS NOTED. PT TOLERATING VENT SETTINGS. SX'D FOR SML AMT OF THICK YELLOW SECRETIONS. ETT IS SECURED, CUFF [place] INSTRUCTIONAL ASSISTANT. VENT ALARMS SET AND AUDIBLE. AMBU BAG AT BEDSIDE. VENT PLUGGED INTO RED OUTLET. WILL CONTINUE TO MONITOR. Addendum: 11/22/17 at 2007 by SHELL BECKER RT Amended: Links added.
[2017-11-22] MEDS: MUPIROCIN OINT 2% 22 GM TUBE SCH (20:33)
[2017-11-22] MEDS: ENOXAPARIN SODIUM 30 MG/0.3 ML DISP.SYRIN SQ SCH (20:35)
[2017-11-23] VITALS (57 sets, daily range): BP systolic 90–158; BP diastolic 38–100
[2017-11-23] MEDS: PIPERACILLIN /TAZOBACTAM 3.375 G in IV D5W 50 ML IV SCH ×5 (00:10→23:44)
[2017-11-23] MEDS: PROPOFOL 100 ML IV PRN ×3 (03:53→12:24)
[2017-11-23 04:43] LABS: BASOPHILS % (AUTO) 0.3 % (0.0-2.0); EOSINOPHILS % (AUTO) 0.6 % (0.0-6.0); HEMATOCRIT 27 % (33-45); HEMOGLOBIN 8.7 g/dL (11.5-14.8); LYMPHOCYTES # (AUTO) 1.1 /CMM (0.8-4.8); MEAN CORPUSCULAR HEMOGLOBIN 28 PG (26.0-33.0); MEAN CORPUSCULAR HGB CONC 33 g/dl (31.0-36.0); MEAN CORPUSCULAR VOLUME 86 fL (82-100); MONOCYTES # (AUTO) 0.5 /CMM (0.1-1.30); MONOCYTES % (AUTO) 7.3 % (2.0-12.0); NEUTROPHILS # (AUTO) 5.7 /CMM (1.8-8.9); NEUTROPHILS % (AUTO) 76.8 % (43.0-81.0); PLATELET COUNT (AUTO) 180 /CMM (150-450); RDW COEFFICIENT OF VARIATION 14.3 (11.5-15.0); RED BLOOD CELL COUNT(AUTO) 3.07 MIL/uL (4.0-5.2); WHITE BLOOD COUNT (AUTO) 7.4 K/uL (4.3-11.0)
[2017-11-23 05:02] LABS: CALCIUM, SERUM 7.8 mg/dL (8.5-10.1); CARBON DIOXIDE 24 mmol/L (21-32); CHLORIDE 108 mmol/L (98-107); CREATININE 0.9 mg/dL (0.6-1.3); GLUCOSE 79 mg/dL (74-106); POTASSIUM 3.2 mmol/L (3.5-5.1); SODIUM SERUM 141 mmol/L (136-145); UREA NITROGEN, BLOOD 12 mg/dL (7-18)
--- NOTE | 2017-11-23 08:27 | NUR ---
INITIAL PECAN MALLOW DIPPER NOTE RCVD PT SEDATED, ABLE TO OPEN EYES WHEN REPOSITIONED, INTUBATED ETT 7.0 22 AT LIP LINE. TOLERATING ORDERED VENT SETTINGS WELL. NO S/O DISTRESS OBSERVED DURING ASSESSMENT. SR ON TELE. OG-TUBE CLAMPED POSITIONING CHECKED BY AUSCULTATION/ASPIRATION, GREEN GASTRIC CONTENTS OBSERVED IN TUBING. WALSH TO GRAVITY DRAINING CLEAR, YELLOW URINE. RIGHT FEMORAL LINE C/D/I/PATENT. NO S/O INFILTRATION/PHLEBITIS OBSERVED UPON FLUSHING, IVF INFUSING ORDERED. BED IN LOW AND LOCKED POSITION. CALL LIGHT WITHIN REACH.
[2017-11-23] MEDS: PANTOPRAZOLE 40 MG VIAL IV SCH (09:34)
[2017-11-23] MEDS: DOCUSATE SODIUM LIQ 100 MG/10 ML UDC NG SCH (09:34)
[2017-11-23] MEDS: SERTRALINE HCL 25 MG TABLET PO SCH (09:35)
[2017-11-23] MEDS: DIVALPROEX SODIUM 125 MG CAP.SPRINK PO SCH ×2 (09:35→21:02)
[2017-11-23] MEDS: OLANZAPINE 5 MG TABLET PO SCH (09:35)
[2017-11-23] MEDS: OXYBUTYNIN CHLORIDE 5 MG TABLET PO SCH ×2 (09:35→16:10)
[2017-11-23] MEDS: LISINOPRIL (5MG) 5 MG TABLET PO SCH (09:35)
[2017-11-23] MEDS: ATENOLOL 25 MG TABLET PO SCH (09:35)
[2017-11-23] MEDS: MUPIROCIN OINT 2% 22 GM TUBE SCH ×2 (09:38→21:04)
[2017-11-23] MEDS: POTASSIUM CL. PREMIX PERIPHER. 50 ML IV SCH ×4 (09:41→12:42)
[2017-11-23] MEDS: IV D5/ 0.9% NACL 1,000 ML IV PRN (11:09)
--- NOTE | 2017-11-23 12:36 | NUR ---
FUR BUYER NOTE DR. DRAKE IN UNIT WILL ATTEMPT TO WEAN PT THIS AFTERNOON. SEDATION TITRATED DOWN. PT ABLE TO FOLLOW SIMPLE COMMANDS SUCH OPEN EYES WHEN INSTRUCTED AND SQUEEZE HAND WITH FINGERS. WILL CONTINUE TO MONITOR. DR. KAMARA IN UNIT THIS AM INFORMED THAT EEG WAS COMPLETED YESTERDAY. MENA MEJIA UPDATED ON PT'S CONDITION Addendum: 11/23/17 at 1239 by GRACY VILLA RN PT'S DAUGHTER, LAURY UPDATED ON PT'S CONDITION OVER THE PHONE. QUESTIONS ANSWERED TO HER SATISFACTION.
[2017-11-23 14:05] LABS: ABG BASE EXCESS -5.7 mmol/L; ABG OXYGEN SATURATION 97.5 % (92.0-98.5); ABG PCO2 38.3 mmHg (35.0-45.0); ABG PH 7.329 (7.350-7.450); ABG PO2 142.1 mmHg (75.0-100.0); AaDO2 99.1 mmHg; COHb 0.2 % (0.5-1.5); MetHb 0.5 % (0.0-1.5); O2Hb 96.8 % (94.0-97.0); SITE, ABG Right Radial
--- NOTE | 2017-11-23 14:12 | NUR ---
MULTIMEDIA PRODUCTION ASSISTANT NOTE WEANING TRIAL DONE. PT ABLE TO FOLLOW COMMANDS. ABG RESULTS REVIEWED BY DR. DRAKE. RECOMMENDED TO KEEP PT ON CPAP MODE SINCE PT APPEARS COMFORTABLE. WILL CONTINUE TO CLOSELY MONITOR PT. PT'S FAMILY, LAURY (DAUGHTER) AT BEDSIDE UPDATED ON PT'S CONDITION. Addendum: 11/23/17 at 1508 by GRACY VILLA RN HCO3 SLIGHTLY IMPROVED SINCE YESTERDAY. PER DR. DRAKE NO REPLACEMENT NEEDED AT THIS TIME. MENA MEJIA UPDATED.
[2017-11-23] MEDS: VANCOMYCIN 1.25 GM in IV D5W 500 ML IV SCH (16:10)
--- NOTE | 2017-11-23 18:46 | NUR ---
SPARE HAND CARDING NOTE PT AWAKE AND ALERT, SHOWING NO S/O DISTRESS/PAIN. VITAL SIGNS REMAIN STABLE, SR ON TELE. TOLERATING CPAP MODE. PT'S FAMILY AT BEDSIDE. BILATERAL SOFT WRIST RESTRAINTS IN PLACE. WALSH TO GRAVITY DRAINING CLEAR, YELLOW URINE, OG-TUBE CLAMPED GREEN GASTRIC CONTENTS OBSERVED IN TUBING UPON ASPIRATING. RIGHT FEMORAL LINE C.D.I.PATENT. NO S/O INFILTRATION/PHLEBITIS OBSERVED IVF INFUSING ORDERED. BED IN LOW AND LOCKED POSITION. CALL LIGHT WITHIN REACH.
--- NOTE | 2017-11-23 19:30 | NUR ---
ICU/RN RECEIVED PT AWAKE ALERT OX1.ON VENT VIA ORAL ETT SATURATING 99-100%.ON CPAP.IRENE RT INTERPRETS WHAT'S GOING ON AND PLAN OF CARE PPT UNDERSTANDS ONLY M[place]OCC[place].
--- NOTE | 2017-11-23 20:40 | NUR ---
ICU/RN PT EXTREMELY AGITATED,GRABBED ETT AND OGT.CHAMPING ON HER ETT,OGT.ADJUSTED BILATERAL SOFT WRIST RESTRAINTS.
[2017-11-23] MEDS: LORAZEPAM INJ 2 MG/ML VIAL IV PRN (20:43)
--- NOTE | 2017-11-23 20:43 | NUR ---
ICU/RN ATIVAN 1MG GIVEN FOR EXTREME AGITATION.FELL ASLEEP WITHIN 10MIN.
[2017-11-23] MEDS: ENOXAPARIN SODIUM 30 MG/0.3 ML DISP.SYRIN SQ SCH (20:44)
--- NOTE | 2017-11-23 21:49 | NUR ---
ICU/RN SON AT BEDSIDE VISITING,UPDATED WITH PT'S CONDITION.
--- NOTE | 2017-11-23 22:30 | NUR ---
ICU/RN CALM AT PRESENT AND SLEEPING INTERMITTENTLY.TOLERATING CPAP WELL.
[2017-11-24] VITALS (32 sets, daily range): BP systolic 114–147; BP diastolic 52–86
[2017-11-24] MEDS: IV D5/ 0.9% NACL 1,000 ML IV PRN ×2 (04:19→17:21)
--- NOTE | 2017-11-24 04:48 | NUR ---
ICU/RN REFUSED BED BATH.SLEPT FOR 2CONSECUTIVE HOURS SINCE 0200.CONTINUES TO TOLERATE CPAP.
[2017-11-24 04:51] LABS: BASOPHILS % (AUTO) 0.3 % (0.0-2.0); EOSINOPHILS % (AUTO) 1.6 % (0.0-6.0); HEMATOCRIT 26 % (33-45); HEMOGLOBIN 8.6 g/dL (11.5-14.8); LYMPHOCYTES # (AUTO) 0.7 /CMM (0.8-4.8); LYMPHOCYTES % (AUTO) 10.4 % (20.0-44.0); MEAN CORPUSCULAR HEMOGLOBIN 28 PG (26.0-33.0); MEAN CORPUSCULAR HGB CONC 33 g/dl (31.0-36.0); MEAN CORPUSCULAR VOLUME 86 fL (82-100); MONOCYTES # (AUTO) 0.6 /CMM (0.1-1.30); MONOCYTES % (AUTO) 7.9 % (2.0-12.0); NEUTROPHILS # (AUTO) 5.7 /CMM (1.8-8.9); NEUTROPHILS % (AUTO) 79.8 % (43.0-81.0); PLATELET COUNT (AUTO) 195 /CMM (150-450); RDW COEFFICIENT OF VARIATION 14.8 (11.5-15.0); RED BLOOD CELL COUNT(AUTO) 3.05 MIL/uL (4.0-5.2); WHITE BLOOD COUNT (AUTO) 7.2 K/uL (4.3-11.0)
[2017-11-24 05:03] LABS: CALCIUM, SERUM 8.1 mg/dL (8.5-10.1); CARBON DIOXIDE 23 mmol/L (21-32); CHLORIDE 112 mmol/L (98-107); POTASSIUM 3.5 mmol/L (3.5-5.1); SODIUM SERUM 143 mmol/L (136-145)
[2017-11-24 05:12] LABS: GLUCOSE 118 mg/dL (74-106); UREA NITROGEN, BLOOD 7 mg/dL (7-18)
--- NOTE | 2017-11-24 05:29 | NUR ---
RECEIVED PT ORALLY INTUBATED WITH 7.0 ETT SECURED AT 22CM AT THE LIP. NO RESP DISTRESS NOTED. PT TOLERATING VENT SETTINGS. SX'D FOR SML AMT OF THICK YELLOW SECRETIONS. ETT IS SECURED, CUFF ASSISTANT LIBRARIAN. VENT ALARMS SET AND AUDIBLE. AMBU BAG AT BEDSIDE. VENT PLUGGED INTO RED OUTLET. WILL CONTINUE TO MONITOR. Addendum: 11/24/17 at 0530 by IRENE STAHL RT Amended: Links added.
[2017-11-24] MEDS: PIPERACILLIN /TAZOBACTAM 3.375 G in IV D5W 50 ML IV SCH ×4 (05:33→23:45)
--- NOTE | 2017-11-24 07:15 | NUR ---
ICU/RN REPORT AND CARE OF PT. GIVEN TO AMANDA LARSON.
--- NOTE | 2017-11-24 07:16 | NUR ---
PIECE DYE WORKER NOTES RECEIVED PATIENT AOX1-2 , COOPERATIVE , FOLLOWING COMMANDS , NOT IN ACUTE DISTRESS , RESPIRATIONS EVEN AND UNLABORED WITH SPO2 OF 100% VIA CPAP MODE WITH SETTINGS OF 12/5 PEEP OF 5 FIO2 OF 40% , SR 75 WITH BBB ON BEDSIDE MONITOR , OGT PATENT AND INTACT CLAMPED , WALSH CATHETER DRAINING VIA GRAVITY WITH CLEAR YELLOW URINE , WITH BILATERAL SOFT WRIST RESTRAINS VISUAL CHECK PER PROTOCOL , RIGHT FEMORAL TLC PATENT AND INTACT WITH D5NS @ 75ML/HR INFUSING WELL , ALL NEEDS ATTENDED , BED ON LOW AND LOCKED POSITION , SIDE RAILS X2 , CALL LIGHT WITHIN REACH , HOB @ 35, WILL CONTINUE TO MONITOR .
[2017-11-24] MEDS: DIVALPROEX SODIUM 125 MG CAP.SPRINK NG SCH ×2 (08:06→21:00)
[2017-11-24] MEDS: LISINOPRIL (5MG) 5 MG TABLET PO SCH (08:06)
[2017-11-24] MEDS: ATENOLOL 25 MG TABLET PO SCH (08:06)
[2017-11-24] MEDS: PANTOPRAZOLE 40 MG VIAL IV SCH (08:06)
[2017-11-24] MEDS: OXYBUTYNIN CHLORIDE 5 MG TABLET PO SCH ×2 (08:06→17:00)
[2017-11-24] MEDS: DOCUSATE SODIUM LIQ 100 MG/10 ML UDC NG SCH (08:07)
[2017-11-24] MEDS: MUPIROCIN OINT 2% 22 GM TUBE SCH ×2 (08:08→21:01)
[2017-11-24] MEDS: Z GUARD REMEDY 2 OZ OINT TP SCH (08:12)
[2017-11-24] MEDS: SERTRALINE HCL 25 MG TABLET PO SCH (08:13)
[2017-11-24] MEDS: OLANZAPINE 5 MG TABLET PO SCH (08:13)
--- NOTE | 2017-11-24 08:13 | NUR ---
ICE HOCKEY COACH NOTES ZOLOFT AND ZYPREXIA NG HELD , PT IS ON CPAP MODE MAY CAUSE DROWSINESS , PATIENT IS MORE AWAKE ALERT X1-2
--- NOTE | 2017-11-24 09:32 | NUR ---
FRENCH POLISHER NOTES SEEN AND EVALUATED BY LAITH SAN , DISCUSSED LABS , PATIENT IS MORE AWAKE ALERT X1-2 , V/S STABLE , WHEN RESEARCH ANTHROPOLOGIST IS AT BEDSIDE PATIENT BECAME AGITATED , PER RESEARCH ANTHROPOLOGIST GIVE PRN ATIVAN X1 , WILL CONTINUE TO MONITOR
[2017-11-24] MEDS: LORAZEPAM INJ 2 MG/ML VIAL IV PRN (09:33)
[2017-11-24 09:54] LABS: ABG OXYGEN SATURATION 95.7 % (92.0-98.5); ABG PCO2 37.1 mmHg (35.0-45.0); ABG PH 7.333 (7.350-7.450); ABG PO2 91.6 mmHg (75.0-100.0); AaDO2 150.9 mmHg; COHb 0.2 % (0.5-1.5); MetHb 0.5 % (0.0-1.5); SITE, ABG Right Radial
--- NOTE | 2017-11-24 10:21 | NUR ---
RT NOTE RECEIVED PT MECHANICALLY VENTILATED VIA 7.0 ETT 22CM AT LIP. TUBE SECURE. CUFF INFLATED. VENTILATOR SETTINGS PRESCRIBED. ALARMS SET PER PROTOCOL AND AUDIBLE. VENT PLUGGED IN TO RED OUTLET. AMBU BAG AT BED SIDE. NO DISTRESS NOTED. Addendum: 11/24/17 at 1023 by ROXANA GOEL RT Amended: Links added.
[2017-11-24] MEDS ORDERED: DC PROPOFOL WHEN EXTUBATED XX PRN (13:00)
--- NOTE | 2017-11-24 13:20 | NUR ---
RT NOTE PT EXTUBATED PER MD ORDER. RN AT BED SIDE. PT AWAKE AND ALERT. PT PLACED ON NC @ 2 LITERS WITH HUMIDIFIER. NO DISTRESS NOTED. WILL CONTINUE TO MONITOR. Addendum: 11/24/17 at 1324 by ROXANA GOEL RT Amended: Links added.
--- NOTE | 2017-11-24 13:44 | NUR ---
WALL WORKER NOTES NOTIFIED DR GODINEZ THAT PATIENT HAS INSPIRATORY STRIDOR S/P EXTUBATION , SEEN AND EVALUATED BY MD , SPO2 OF 98% VIA 2LPM , PT DENIES SOB AT THIS TIME , PER MD START PT ON SOLUMEDROL 60MG Q6 X 4 DOSES , ORDERS CARRIED OUT
[2017-11-24] MEDS: methylPREDNISolone SOD SUCC 125 MG/2ML VIAL IV SCH ×3 (14:01→23:45)
[2017-11-24] MEDS ORDERED: LACTOBACILLUS RHAMNOSUS GG 1 EACH CAP.SPRINK PO SCH (17:00)
[2017-11-24] MEDS: VANCOMYCIN 1 GM in IV D5W 250 ML IV SCH (18:04)
--- NOTE | 2017-11-24 19:30 | NUR ---
Received patient from day shift patient awake oriented x 2.VS stable.SR with BBB.Denies pain. With O2 3L NC respiration even and unlabored.Saturating well to 96%.NPO.IVF continued.FC to gravity with clear yellow urine.Contact isolation for MRSA nares implemented.Turned and repositioned.Call light at bedside within easy reach with instructions.Verbalized understanding. Bed alarm on.
[2017-11-24] MEDS: ENOXAPARIN SODIUM 30 MG/0.3 ML DISP.SYRIN SQ SCH (21:02)
[2017-11-25] VITALS (18 sets, daily range): BP systolic 110–178; BP diastolic 53–99
--- NOTE | 2017-11-25 | NUR ---
Patient resting.VS stable.IVF infusing well.Turned and repositioned.
--- NOTE | 2017-11-25 04:00 | NUR ---
Patient resting.VS remains stable.SR 70's /SB 40's-50's when asleep.Asymptomatic. BM X 1 soft brown stool.Perineal care done.Bed bath rendered.Complete linens changed . Turned and repositioned.
[2017-11-25 04:38] LABS: BASOPHILS % (AUTO) 0.2 % (0.0-2.0); HEMATOCRIT 27 % (33-45); HEMOGLOBIN 8.8 g/dL (11.5-14.8); LYMPHOCYTES # (AUTO) 0.5 /CMM (0.8-4.8); LYMPHOCYTES % (AUTO) 9.5 % (20.0-44.0); MEAN CORPUSCULAR HEMOGLOBIN 28 PG (26.0-33.0); MEAN CORPUSCULAR HGB CONC 32 g/dl (31.0-36.0); MEAN CORPUSCULAR VOLUME 86 fL (82-100); MONOCYTES # (AUTO) 0.1 /CMM (0.1-1.30); MONOCYTES % (AUTO) 1.8 % (2.0-12.0); NEUTROPHILS # (AUTO) 5.1 /CMM (1.8-8.9); NEUTROPHILS % (AUTO) 88.5 % (43.0-81.0); PLATELET COUNT (AUTO) 214 /CMM (150-450); RDW COEFFICIENT OF VARIATION 14.2 (11.5-15.0); RED BLOOD CELL COUNT(AUTO) 3.17 MIL/uL (4.0-5.2); WHITE BLOOD COUNT (AUTO) 5.8 K/uL (4.3-11.0)
[2017-11-25 04:53] LABS: CALCIUM, SERUM 8.2 mg/dL (8.5-10.1); CARBON DIOXIDE 24 mmol/L (21-32); CHLORIDE 111 mmol/L (98-107); CREATININE 0.9 mg/dL (0.6-1.3); GLUCOSE 201 mg/dL (74-106); POTASSIUM 3.6 mmol/L (3.5-5.1); SODIUM SERUM 145 mmol/L (136-145); UREA NITROGEN, BLOOD 8 mg/dL (7-18)
[2017-11-25] MEDS: PIPERACILLIN /TAZOBACTAM 3.375 G in IV D5W 50 ML IV SCH ×3 (05:30→17:27)
[2017-11-25] MEDS: methylPREDNISolone SOD SUCC 125 MG/2ML VIAL IV SCH (05:30)
--- NOTE | 2017-11-25 07:12 | NUR ---
SENIOR PASTOR NOTES RECEIVED PATIENT AOX1-2 [place]OREAN SPEAKING , NOT IN ACUTE DISTRESS , RESPIRATIONS EVEN AND UNLABORED WITH SPO2 OF 98% VIA 3LPM NC , SB 47 ON BEDSIDE MONITOR , WALSH CATHETER DRAINING VIA GRAVITY WITH CLEAR YELLOW URINE , RIGHT FEMORAL TLC PATENT AND INTACT WITH D5NS @ 75ML/HR INFUSING WELL , ALL NEEDS ATTENDED , BED ON LOW AND LOCKED POSITION , SIDE RAILS X2 , CALL LIGHT WITHIN REACH , HOB @ 35, WILL CONTINUE TO MONITOR .
[2017-11-25] MEDS: LISINOPRIL (5MG) 5 MG TABLET PO SCH (08:29)
[2017-11-25] MEDS: DIVALPROEX SODIUM 125 MG CAP.SPRINK PO SCH ×2 (08:29→20:51)
[2017-11-25] MEDS: OLANZAPINE 5 MG TABLET PO SCH (08:29)
[2017-11-25] MEDS: ATENOLOL 25 MG TABLET PO SCH (08:29)
[2017-11-25] MEDS: OXYBUTYNIN CHLORIDE 5 MG TABLET PO SCH ×2 (08:29→16:43)
[2017-11-25] MEDS: PANTOPRAZOLE 40 MG VIAL IV SCH (08:29)
[2017-11-25] MEDS: SERTRALINE HCL 25 MG TABLET PO SCH (08:29)
[2017-11-25] MEDS: DOCUSATE SODIUM LIQ 100 MG/10 ML UDC PO SCH (08:30)
[2017-11-25] MEDS: Z GUARD REMEDY 2 OZ OINT TP SCH (08:30)
[2017-11-25] MEDS: MUPIROCIN OINT 2% 22 GM TUBE SCH ×2 (08:30→21:00)
--- NOTE | 2017-11-25 08:37 | NUR ---
AEMT NOTES PO MEDS GIVEN WITH APPLE SAUCE , PT TOLERATED IT WELL WITH NO SIGNS OF ASPIRATIONS ,
--- NOTE | 2017-11-25 09:52 | NUR ---
TUBE TESTER NOTES NOTIFIED ROBERTO REGARDING BP OF 170/59 AND 162/69 DESPITE OF GIVING SCHEDULED TENORMIN 25MG AND PRIMIVIL 5MG , PER FILM DEVELOPER ADD CATAPRES 0.1 Q6 PRN , ORDERS CARRIED OUT
[2017-11-25] MEDS ORDERED: CLONIDINE HCL 0.1 MG TABLET PO PRN (10:00)
[2017-11-25] MEDS: IV D5/ 0.9% NACL 1,000 ML IV PRN (10:09)
--- NOTE | 2017-11-25 10:11 | NUR ---
CHAIN MAKER HAND NOTES TYLENOL PRN GIVEN PT COMPLAINS OF MILD BACK PAIN 07/10 , WILL RE ASSESS EFFECTIVENESS CLONIDINE 0.1MG PRN GIVEN DUE TO BP OF 170/59 AND 162/69 , WILL RE ASSESS EFFECTIVENESS
--- NOTE | 2017-11-25 11:18 | NUR ---
METAL FINISH INSPECTOR NOTES SEEN AND EVALUATED BY LUSTER REPAIRER ROBERTO , DISCUSSED LABS , BP OF 166/66 CLONIDINE PRN GIVEN , HR OF 48-55 ON BEDSIDE MONITOR , PENDING SWALLOW EVAL , LUSTER REPAIRER AWARE , OK TO TRANSFER TO TELE
[2017-11-25] MEDS ORDERED: hydrALAZINE HCL IV 20 MG VIAL IV PRN (11:30)
[2017-11-25] MEDS ORDERED: ACETAMINOPHEN 650 MG/20.3 ML UDC PO PRN (13:30)
--- NOTE | 2017-11-25 14:00 | NUR ---
RN NOTE RECEIVED BEDSIDE REPOT FROM [facility] AD OPERATIONS COORDINATOR. RECEIVED PATIENT ALERT AND ORIENTED X1-2 WITH EPISODES OF CONFUSION. SHE IS ABLE TO MAKE THINGS KNOWN. HOB ELEVATED FOR COMFORT. BREATHING EVEN AND UNLABORED WITH NO DISTRESS NOTED. PATIENT IS CURRENTLY NPO UNTIL SWALLOW EVALUATION IS DONE. ON ADMINISTRATIVE MEDICAL DIRECTOR SINUS RAHEEL HR OF 52. IV SITE INTACT AND PATENT WITH ONGOING FLUIDS ORDERED. REORIENTED PATIENT TO ROOM AND CALL LIGHT BUTTON. SKIN WARM TO TOUCH AND INTACT. ALL SAFETY MEASURES DONE. BED LOW AND LOCKED POSITION. WILL CONTINUE TO MONITOR CLOSELY.
[2017-11-25 16:02] LABS: OCCULT BLOOD STOOL NEGATIVE (NEGATIVE)
[2017-11-25] MEDS: VANCOMYCIN 1 GM in IV D5W 250 ML IV SCH (16:35)
--- NOTE | 2017-11-25 19:50 | NUR ---
RN NOTE PATIENT REMAINED STABLE THROUGHOUT SHIFT. NO ACUTE CHANGES OR DISTRESS NOTED. WILL ENDORSE TO NE4XT SHIFT TO CONTINUE TO MONITOR CONTINUITY OF CARE.
--- NOTE | 2017-11-25 20:00 | NUR ---
RN INITIAL NOTE RECEIVED PATIENT ALERT AND ORIENTED X1-2 WITH EPISODES OF CONFUSION. SHE IS ABLE TO MAKE THINGS KNOWN. HOB ELEVATED FOR COMFORT. BREATHING EVEN AND UNLABORED WITH NO DISTRESS NOTED. PATIENT IS CURRENTLY NPO UNTIL SWALLOW EVALUATION IS DONE. ON SAUSAGE CUTTER SINUS RAHEEL HR OF 47. IV SITE INTACT AND PATENT WITH ONGOING FLUIDS ORDERED. FAMILY AT BED SIDE. ALL SAFETY MEASURES DONE. BED LOW AND LOCKED. CALL LIGHT WITHIN REACH. WILL CONT TO MONITOR.
[2017-11-25] MEDS: ENOXAPARIN SODIUM 30 MG/0.3 ML DISP.SYRIN SQ SCH (20:52)
[2017-11-26] VITALS (7 sets, daily range): BP systolic 124–177; BP diastolic 52–81
[2017-11-26] MEDS: PIPERACILLIN /TAZOBACTAM 3.375 G in IV D5W 50 ML IV SCH ×2 (00:17→05:16)
[2017-11-26] MEDS: IV D5/ 0.9% NACL 1,000 ML IV PRN (00:23)
[2017-11-26] MEDS: LORAZEPAM INJ 2 MG/ML VIAL IV PRN (02:13)
[2017-11-26] MEDS ORDERED: diphenhydrAMINE HCL 50 MG/ML VIAL IV ONE (05:00)
[2017-11-26] MEDS ORDERED: HALOPERIDOL LACTATE INJ 5 MG/ML VIAL IM ONE (05:00)
[2017-11-26 06:32] LABS: BASOPHILS % (AUTO) 0.1 % (0.0-2.0); EOSINOPHILS % (AUTO) 0.2 % (0.0-6.0); HEMATOCRIT 28 % (33-45); HEMOGLOBIN 9.2 g/dL (11.5-14.8); LYMPHOCYTES # (AUTO) 1.2 /CMM (0.8-4.8); LYMPHOCYTES % (AUTO) 13.7 % (20.0-44.0); MEAN CORPUSCULAR HEMOGLOBIN 28 PG (26.0-33.0); MEAN CORPUSCULAR HGB CONC 33 g/dl (31.0-36.0); MEAN CORPUSCULAR VOLUME 87 fL (82-100); MONOCYTES # (AUTO) 0.6 /CMM (0.1-1.30); MONOCYTES % (AUTO) 7.5 % (2.0-12.0); NEUTROPHILS # (AUTO) 6.8 /CMM (1.8-8.9); NEUTROPHILS % (AUTO) 78.5 % (43.0-81.0); PLATELET COUNT (AUTO) 253 /CMM (150-450); RDW COEFFICIENT OF VARIATION 14.2 (11.5-15.0); RED BLOOD CELL COUNT(AUTO) 3.24 MIL/uL (4.0-5.2); WHITE BLOOD COUNT (AUTO) 8.6 K/uL (4.3-11.0)
[2017-11-26 06:51] LABS: CALCIUM, SERUM 8.7 mg/dL (8.5-10.1); CARBON DIOXIDE 25 mmol/L (21-32); CHLORIDE 116 mmol/L (98-107); CREATININE 1.1 mg/dL (0.6-1.3); GLUCOSE 98 mg/dL (74-106); SODIUM SERUM 150 mmol/L (136-145); UREA NITROGEN, BLOOD 13 mg/dL (7-18)
--- NOTE | 2017-11-26 07:15 | NUR ---
TELE/RN INITIAL NOTES RECEIVED PT IN BED, ALERT AND VERBALLY RESPONSIVE (WOLOF SPEAKING), ON 2L O2 VIA NC, TOLERATING WELL, NO SOB NOTED. F/C INTACT AND IN PLACED, DRAINING CLEAR YELLOW URINE. WITH TOAN SOFT WRIST RESTRAINT FOR SAFETY, CIRCULATION OK. WITH ONGOING NS AT 75ML/HR INFUSING WELL ON R FEMORAL TLC. INTACT AND PATENT. HOB ELEVATED. SAFETY MEASURES IN PLACED. BED ALARM ON. WILL CONT TO MONITOR
--- NOTE | 2017-11-26 07:39 | NUR ---
RN CLOSING NOTES PT WAS VERY AGITATED DURING SHIFT, TRIED TO GET OUT OF BED, AND PULL ON IV LINES AND WALSH. A REQUEST FOR TOAN SOFT RESTRAINT WAS MADE FOR PTS SAFETY. PT WAS MEDICATED ORDERED. PT WAS KEPT SAFE DURING SHIFT. ALL NEEDS ANTICIPATED AND MET. WILL ENDORSE TO AM RN.
[2017-11-26] MEDS: DOCUSATE SODIUM LIQ 100 MG/10 ML UDC PO SCH (08:25)
[2017-11-26] MEDS: DIVALPROEX SODIUM 125 MG CAP.SPRINK PO SCH (08:25)
[2017-11-26] MEDS: PANTOPRAZOLE 40 MG VIAL IV SCH (08:25)
[2017-11-26] MEDS: SERTRALINE HCL 25 MG TABLET PO SCH (08:25)
[2017-11-26] MEDS: OLANZAPINE 5 MG TABLET PO SCH (08:26)
[2017-11-26] MEDS: ATENOLOL 25 MG TABLET PO SCH (08:26)
[2017-11-26] MEDS: OXYBUTYNIN CHLORIDE 5 MG TABLET PO SCH ×2 (08:26→16:53)
--- NOTE | 2017-11-26 08:57 | NUR ---
WOUND CARE CONSULT: PT PRESENTS WITH SACRAL SCARRING AND RASH TO LOWER/INNER BUTTOCKS, PRESENT ON ADMISSION. RECOMMENDATIONS MADE FOR SKIN PROTECTION AND CARE. DISCUSSED WITH NURSING STAFF. WILL SEE PRN. HUFFMAN IN AGREEMENT WITH PLAN OF CARE. PT ON [place]IL[place]ON ISOFLEX LOW AIRLOSS BED. CURRENT FRANDY SCORE IS 13. PT IS INCONTINENT OF STOOL. Addendum: 11/26/17 at 0858 by ANDRÉS AMBROCIO WNDNU Amended: Links added.
[2017-11-26] MEDS ORDERED: LISINOPRIL (5MG) 5 MG TABLET PO SCH (09:00)
[2017-11-26] MEDS: Z GUARD REMEDY 2 OZ OINT TP SCH (09:24)
[2017-11-26] MEDS: MUPIROCIN OINT 2% 22 GM TUBE SCH (09:24)
[2017-11-26] MEDS: CLOTRIMAZOLE 1% 15 GM TUBE TP SCH ×2 (09:28→16:54)
[2017-11-26] MEDS: POTASSIUM CL. PREMIX PERIPHER. 50 ML IV SCH ×6 (10:38→16:34)
[2017-11-26] MEDS ORDERED: POTASSIUM CHLORIDE 20 MEQ TAB.PRT.SR PO ONE (13:00)
--- NOTE | 2017-11-26 13:00 | NUR ---
RN NOTES CLARIFIED WITH XENA IF WANNA GIVE BOTH 60MEDS KCL AND 20 MEQS PO. PER [facility]IATRIST [facility]THOP[facility]. COMPLETE ALL (PO AND IV) BEFORE D/C
--- NOTE | 2017-11-26 14:00 | NUR ---
RN NOTES SPOKE WITH DTR LAURY, NOTIFIED HER THAT PT IS D/C. PER DTR, NO ONE WILL BE ABLE TO PATIENT SVCS MGR PT UNTIL TOMORROW. ESL PROFESSOR XENA AND CHARGE NURSE NOTIFIED
--- NOTE | 2017-11-26 16:00 | NUR ---
RN NOTES PER CHARGE NURSE, POWER GENERATING PLANT OPERATOR SPOKE WITH DTR LAURY RE: PT'S D/C. DTR AGREED TO D/C PT AND STATES CAREGIVER WILL BE THERE TO RECEIVE PT CALLED AND SPOKE YESSICA, PT'S DTR, CONFIRMED IF SOMEONE WILL BE AT HOME FOR THE PT, PER DTR, CAREGIVER WILL BE THERE
--- NOTE | 2017-11-26 17:00 | NUR ---
RN NOTES EMT ON FLOOR FOR P/U, PT'S BP 177/81. PRN HYDRALAZINE IV GIVEN. WILL MONITOR RESULT
--- NOTE | 2017-11-26 17:30 | NUR ---
RN NOTES PT'S BP 147/68. NOTIFIED ASSEMBLY INSTRUCTIONS WRITER XENA IF STILL OK TO D/C PT WITH BP 177/81, POST HYDRALAZINE IVP BP OF 147/68. PER ASSEMBLY INSTRUCTIONS WRITER OK TO D/C PT
--- NOTE | 2017-11-26 19:00 | NUR ---
RN NOTES RECEIVED CALL FROM SOSSI, PT'S DTR. DTR WAS UPSET THAT PT FEELS DIZZY AND HAS BM WHEN SHE GOT HOME. ALSO UPSET ABOUT PT'S FEMORAL CATH WAS LEFT. CHARGE NURSE SOON NOTIFIED. MENA MCCALLUM NOTIFIED. PER PRECINCT POLICE SERGEANT OK TO GO BACK TO ER FOR FEMORAL CATH REMOVAL. CASE MNGR SPENSER INFORMED, PER CM WILL CALL DTR SOSSI AND ARRANGE TRANSPORTATION FOR PT TO GO BACK TO ER FOR REMOVAL OF FEMORAL CATH AND EVAL IF NEEDED TO BE READMIT
== END 2017-11-26 18:00 | disposition home or self-care (01) | DRG 917 ==
LOC: ER 14:54 → ICU 17:20 → TELE1 11-25 13:55
PROVIDERS: ADMIT Nurse Practitioner Acute Care; ATTEND Nurse Practitioner Acute Care
PROC: 5A1945Z Respiratory Ventilation, 24-96 Consecutive Hours (ICD-10-PCS; principal; 2017-11-21)
PROC: 02HV33Z Insertion of Infusion Device into Superior Vena Cava, Percutaneous Approach (ICD-10-PCS; 2017-11-21)
PROC: B548ZZA Ultrasonography of Superior Vena Cava, Guidance (ICD-10-PCS; 2017-11-21)
DX: T40.7X1A Poisoning by cannabis (derivatives), accidental (unintentional), initial encounter (principal); J96.01 Acute respiratory failure with hypoxia; G92 Toxic encephalopathy; E87.0 Hyperosmolality and hypernatremia; E78.5 Hyperlipidemia, unspecified; I10 Essential (primary) hypertension; Y92.89 Other specified places as the place of occurrence of the external cause; I95.9 Hypotension, unspecified; E83.51 Hypocalcemia; F32.9 Major depressive disorder, single episode, unspecified; F41.9 Anxiety disorder, unspecified; F29 Unspecified psychosis not due to a substance or known physiological condition; E66.9 Obesity, unspecified; Z68.29 Body mass index [BMI] 29.0-29.9, adult
CPT/HCPCS: 31720; 36415; 36600; 70450-TC; 70496-TC; 70498-TC; 71045-TC; 80048-TC; 80061-TC; 80076-TC; 80202-TC; 80305; 81000-TC; 82272-TC; 82803-TC; 82962-TC; 83605-TC; 83735-TC; 84100-TC; 84484-TC; 85025-TC; 85730-TC; 87040-TC; 87081-TC; 87086-TC; 92611-TC; 94002-TC; 94003-TC; 94760-TC; 94799-TC; 95819-TC; 99082-TC; A4606; C1751; C9113; J0360; J1200; J1630; J1650; J2060; J2405; J2543; J2930; J3370; J3480; J3490; J7030; J7042; J7050; J7060; Q9967; Z7610